=== PATIENT | male | born 1995 | race Two or more races ===

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

== ENCOUNTER 2017-03-18 03:56 | Emergency (ER) | payer OTHER ==
[2017-03-18 04:03] VITALS: BP 106/65; PULSE 68; TEMP 97.9
[2017-03-18] MEDS ORDERED: FAMOTIDINE IV 20 MG in DEXTROSE 5%-WATER - 100 ML IVPB ONE (04:30)
[2017-03-18] MEDS ORDERED: SODIUM CHLORIDE 1,000 ML IV STA (04:30)
[2017-03-18] MEDS ORDERED: PANTOPRAZOLE SODIUM 40 MG VIAL IVPUSH ONE (04:30)
[2017-03-18] MEDS ORDERED: ONDANSETRON 4 MG/2 ML VIAL IVPUSH ONE (04:30)
[2017-03-18] MEDS ORDERED: ONDANSETRON 4 MG/2 ML VIAL ONE (04:35)
[2017-03-18] MEDS ORDERED: PANTOPRAZOLE SODIUM 40 MG VIAL ONE (04:35)
[2017-03-18] MEDS ORDERED: FAMOTIDINE 20 MG/50 ML IVPB 20 MG/50 ML MG IVPB ONE (04:35)
--- NOTE | 2017-03-18 04:37 | PDOC ---
History of Present Illness - General Chief Complaint: Nausea/Vomiting Stated Complaint: ACID REFLUX Time Seen by Provider: 03/18/17 04:05 History Source: Patient Exam Limitations: No Limitations - History of Present Illness Travel History: No Initial Comments: 03/18/17 04:31 22yo Male patient w/ PmHx: GERD presents to ED via EMS c/o n/v with epigastric abdominal pain. Patient states symptoms began this morning after eating "Pork." He states he has not been feeling well, and went to pick his girlfriend up from work, when he began vomiting and experiencing epigastric abdominal pain. He denies any other complaints at this time. Timing/Duration: reports: resolved prior to arrival. denies: constant, getting worse, changing over time, intermittent, gone now, other Quality: reports: burning. denies: mild, moderate, severe, aching, cramping, dullness, fullness, sharpness, stabbing, throbbing, other Abdominal Pain Onset Location: reports: epigastric. denies: RUQ, LUQ, RLQ, LLQ , periumbilical, suprapubic, generalized abdomen, flank, unknown, other Pain Radiation: reports: no radiation. denies: RUQ, LUQ, RLQ, LLQ, epigastric, periumbilical, flank, groin, scapula, shoulder, chest, back, other Activities at Onset: reports: no specific activity. denies: none, exertion, emotional upset, rest, sleep, eating, working, sexual intercourse, other Treatment Prior to Arrive: worse with: analgesics, antacids, cold pack, heat, laxative, enema, other Past History - Travel Traveled outside of the country in the last 30 days: No Close contact w/someone who was outside of country & ill: No - Past Medical History Allergies/Adverse Reactions: Allergies Allergy/AdvReac Type Severity Reaction Status Date / Time No Known Allergies Allergy Verified 03/18/17 04:00 Home Medications: Ambulatory Orders Famotidine [Pepcid] 40 mg PO DAILY 7 Days #7 tablet 03/18/17 Ondansetron [Zofran Odt -] 4 mg SL Q6H PRN #20 od.tablet 03/18/17 Pantoprazole Sodium [Protonix -] 40 mg PO DAILY #7 tablet.ec 03/18/17 - Immunization History Immunization Up to Date: Yes - Suicide/Smoking/Psychosocial Hx Smoking History: Never smoked Have you smoked in the past 12 months: No Information on smoking cessation initiated: No Hx Alcohol Use: No Drug/Substance Use Hx: No Substance Use Type: None Abd/GI Specific PMHX - Complaint Specific PMHX Colitis: No Diverticulitis: No Gall Bladder Disease: No GERD: No Hepatitis: No Irritable Bowel Synd (IBS): No Pancreatitis: No GI Ulcer Disease: No Review of Systems - Review of Systems Able to Perform ROS?: Yes Is the patient limited Mongolian proficient: No ABD/GI: Yes: Nausea, Vomiting, Abdominal cramping (Epigastric) All Other Systems: Reviewed and Negative *Physical Exam - Vital Signs Last Vital Signs Temp Pulse Resp BP Pulse Ox 97.9 F 68 14 106/65 99 03/18/17 04:01 03/18/17 04:01 03/18/17 04:01 03/18/17 04:01 03/18/17 04:01 - Physical Exam General Appearance: Yes: Nourished, Appropriately Dressed. No: Apparent Distress, Mild Distress, Moderate Distress, Severe Distress Neck: positive: Trachea midline, Normal Thyroid, Supple. negative: Lymphadenopathy (R), Lymphadenopathy (L) Respiratory/Chest: positive: Lungs Clear, Normal Breath Sounds. negative: Chest Tender, Respiratory Distress, Accessory Muscle Use, Labored Respiration, Rapid RR, Decreased Breath Sounds, Paradoxal Breathing, Crackles, Rhonchi, Stridor, Wheezing, Hyperresonant Cardiovascular: positive: Regular Rhythm, Regular Rate. negative: Tachycardia Gastrointestinal/Abdominal: positive: Flat, Soft, Increased Bowel Sounds. negative: Normal Bowel Sounds, Tender, Pulsatile Mass, Decreased BS, Protuberent , Distended, Guarding, Rebound, Tenderness Musculoskeletal: positive: Normal Inspection. negative: CVA Tenderness, Decreased Range of Motion, Vertebral Tenderness Extremity: positive: Normal Capillary Refill, Normal Inspection, Normal Range of Motion. negative: Pedal Edema, Swelling, Calf Tenderness, Erythema, Inflammation Integumentary: positive: Normal Color, Dry, Warm. negative: Cold, Clammy, Swelling, Ecchymosis, Bruising Neurologic: positive: cloth washer back tender II-XII NML intact, Fully Oriented, Alert, Normal Mood/ Affect, Normal Response, Motor Strength 5/5 ED Treatment Course - LABORATORY CBC & Chemistry Diagram: 03/18/17 04:45 03/18/17 04:45 *DC/Admit/Observation/Transfer Diagnosis at time of Disposition: Gastroenteritis - Discharge Dispostion Disposition: HOME Condition at time of disposition: Improved Admit: No - Prescriptions Prescriptions: Famotidine [Pepcid] 40 mg PO DAILY 7 Days #7 tablet Ondansetron [Zofran Odt -] 4 mg SL Q6H PRN #20 od.tablet PRN Reason: Nausea/Vomiting Pantoprazole Sodium [Protonix -] 40 mg PO DAILY #7 tablet.ec - Referrals - Patient Instructions Printed Discharge Instructions: DI for Vomiting -- Adult Additional Instructions: Follow up with your primary care provider this week for further evaluation. Take medications as prescribed. Drink plenty fluids. Rest. Print Language: WELSH - Post Discharge Activity Forms/Work/School Notes: Back to Work
[2017-03-18 04:49] LABS: BASOPHIL 0.5 % (0-2.0); EOSINOPHIL 0.8 % (0-4.5); MCHC 34.3 g/dl (32.0-35.9); MEAN CELL VOLUME 84.7 fl (80-96); MEAN PLT VOLUME 8.1 fl (7.5-11.1); NEUTROPHILS 83.5 % (42.8-82.8); PLATELET COUNT 207 K/MM3 (134-434); RDW 13.6 % (11.9-15.9); WHITE BLOOD COUNT 11.9 K/mm3 (4.0-10.0)
[2017-03-18 05:19] LABS: ALBUMIN 4.3 g/dl (3.4-5.0); ANION GAP 8 (8-16); CALCIUM 9.1 mg/dL (8.5-10.1); CO2 27 mmol/L (21-32); CREATININE 0.9 mg/dL (0.7-1.3); GLUCOSE,RANDOM 94 mg/dL (74-106); SGOT/AST 17 U/L (15-37); SGPT/ALT 19 U/L (12-78)
[2017-03-18 05:21] LABS: ALK PHOS 60 U/L (45-117); BILIRUBIN,TOTAL 0.7 mg/dL (0.2-1.0); TOT PROT 6.9 g/dl (6.4-8.2)
[2017-03-18 06:08] LABS: URINE APPEARANCE CLEAR; URINE BILIRUBIN NEGATIVE (NEGATIVE); URINE BLOOD NEGATIVE (NEGATIVE); URINE COLOR LT. YELLOW; URINE GLUCOSE (UA) NEGATIVE (NEGATIVE); URINE KETONE TRACE (NEGATIVE); URINE NITRITE NEGATIVE (NEGATIVE); URINE PROTEIN NEGATIVE (NEGATIVE); URINE UROBILINOGEN 0.2 mg/dL (0.2-1.0)
[2017-03-18 09:16] LABS: URINE LEUK ESTERASE Negative (NEGATIVE)
== END 2017-03-18 06:43 | disposition home or self-care (01) ==
LOC: JER 03:56
PROC: 3E023NZ Introduction of Analgesics, Hypnotics, Sedatives into Muscle, Percutaneous Approach (ICD-10-PCS; principal; 2017-03-18)
DX: M54.5 Low back pain (principal); X50.0XXA Overexertion from strenuous movement or load, initial encounter; Y93.89 Activity, other specified; Y92.59 Other trade areas as the place of occurrence of the external cause; Y99.0 Civilian activity done for income or pay
CPT/HCPCS: 36415; 80053; 81003; 85025; 96372; 99282-25

== ENCOUNTER 2018-03-12 13:14 | Emergency (ER) | payer OTHER ==
[2018-03-12 13:23] VITALS: BP 108/73; PULSE 88; TEMP 98.2
--- NOTE | 2018-03-12 13:49 | PDOC ---
History of Present Illness - General Chief Complaint: Allergic Reaction Stated Complaint: Allergic Reaction Time Seen by Provider: 03/12/18 13:35 History Source: Patient Past History - Past Medical History Allergies/Adverse Reactions: Allergies Allergy/AdvReac Type Severity Reaction Status Date / Time No Known Allergies Allergy Verified 03/12/18 13:20 Home Medications: Ambulatory Orders Acetaminophen [Tylenol] 650 mg PO ONCE 03/12/18 Niacinamide [Niacin] 500 mg PO ONCE 03/12/18 COPD: No GI Disorders: Yes (chr gastritis) - Immunization History Immunization Up to Date: Yes - Suicide/Smoking/Psychosocial Hx Smoking History: Smoker current status UNK Have you smoked in the past 12 months: No Hx Alcohol Use: No Drug/Substance Use Hx: No Substance Use Type: None Review of Systems - Review of Systems HEENTM: No: Throat Pain, Throat Swelling Respiratory: No: Shortness of Breath Integumentary: Yes: Pruritus. No: Rash *Physical Exam - Vital Signs Last Vital Signs Temp Pulse Resp BP Pulse Ox 98.2 F 88 18 108/73 99 03/12/18 13:22 03/12/18 13:22 03/12/18 13:22 03/12/18 13:22 03/12/18 13:22 - Physical Exam General Appearance: Yes: Appropriately Dressed. No: Apparent Distress HEENT: positive: Normal ENT Inspection, Normal Voice, Pharynx Normal Neck: positive: Supple Respiratory/Chest: positive: Lungs Clear, Normal Breath Sounds. negative: Respiratory Distress, Stridor, Wheezing Cardiovascular: positive: Regular Rate, S1, S2 Integumentary: negative: Rash Neurologic: positive: Fully Oriented, Alert, Normal Mood/Affect Medical Decision Making - Medical Decision Making 03/12/18 13:51 22-year-old male here with pruritus and burning sensation to skin shortly after taking niacin this a.m. States symptoms have since improved. No voice changes, resp symptoms or rash. Has never taken niacin before. States he is on probation and trying to pass a drug test after smoking marijuana recently and that a friend gave him 1 dose of niacin telling him that meds will help detox system. See exam Adverse rxn to meds No resp sxs Well quentin and stable w/ unremarkable exam No intervention needed in ED -dc w/ instruction to refrain for meds and to return as needed 03/12/18 13:55 *DC/Admit/Observation/Transfer Diagnosis at time of Disposition: Medication side effect - Discharge Dispostion Disposition: HOME Condition at time of disposition: Good - Referrals - Patient Instructions Printed Discharge Instructions: DI for Adverse Drug Reaction -- Allergic Additional Instructions: Niacin is a medication used to treat cholesterol It can cause adverse reaction such as itching, burning sensation of skin, rash, etc As your exam was normal and you are stable, there is no intervention needed in ED Refrain from taking medication in the future If symptoms recur, return to ED - Post Discharge Activity
== END 2018-03-12 14:25 | disposition home or self-care (01) ==
LOC: JERFT 13:14
DX: T46.7X5A Adverse effect of peripheral vasodilators, initial encounter (principal); Y92.89 Other specified places as the place of occurrence of the external cause
CPT/HCPCS: 99281-25

== ENCOUNTER 2018-08-05 09:23 | Emergency (ER) | payer OTHER ==
[2018-08-05] MEDS ORDERED: FAMOTIDINE 20 MG/50 ML IVPB 20 MG/50 ML MG IVPB ONE ×2 (10:11→10:55)
[2018-08-05] MEDS ORDERED: ONDANSETRON 4 MG/2 ML VIAL IVPUSH ONE (10:11)
[2018-08-05] MEDS ORDERED: morphine CARPU-JECT 2 MG/1 ML DISP.SYRIN IVPUSH ONE (10:17)
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
[2018-08-05] MEDS ORDERED: ACETAMINOPHEN 325 MG TABLET (FP) PO ONE (10:47)
[2018-08-05 10:48] LABS: BASO % 0.6 % (0-2.0); EOS % 0.4 % (0-4.5); HEMOGLOBIN 14.1 GM/dL (11.7-16.9); LYMPH % 15.1 % (8-40); MCH 29.6 pg (25.7-33.7); MCHC 34.4 g/dl (32.0-35.9); MEAN CELL VOLUME 86.2 fl (80-96); MEAN PLT VOLUME 7.8 fl (7.5-11.1); MONO % 7.2 % (3.8-10.2); NEUT % 76.7 % (42.8-82.8); PLATELET COUNT 219 K/MM3 (134-434); RBC 4.76 M/mm3 (4.00-5.60); RDW 13.6 % (11.9-15.9); WHITE BLOOD COUNT 7.4 K/mm3 (4.0-10.0)
[2018-08-05] MEDS ORDERED: ACETAMINOPHEN 325 MG TABLET (FP) ONE (10:54)
[2018-08-05] MEDS ORDERED: ONDANSETRON 4 MG/2 ML VIAL ONE (10:54)
[2018-08-05 10:56] LABS: URINE APPEARANCE CLEAR; URINE BILIRUBIN NEGATIVE (NEGATIVE); URINE COLOR YELLOW; URINE GLUCOSE (UA) NEGATIVE (NEGATIVE); URINE KETONE NEGATIVE (NEGATIVE); URINE LEUK ESTERASE NEGATIVE (NEGATIVE); URINE NITRITE NEGATIVE (NEGATIVE); URINE PROTEIN NEGATIVE (NEGATIVE); URINE UROBILINOGEN 0.2 mg/dL (0.2-1.0)
[2018-08-05 11:16] LABS: ALK PHOS 60 U/L (45-117); ANION GAP 3 MMOL/L (8-16); BILIRUBIN,TOTAL 0.9 mg/dL (0.2-1); BLOOD UREA NITROGEN 10 mg/dL (7-18); CHLORIDE 107 mmol/L (98-107); CO2 28 mmol/L (21-32); CREATININE 0.7 mg/dL (0.55-1.3); GLUCOSE,RANDOM 93 mg/dL (74-106); LIPASE 237 U/L (73-393); SGOT/AST 22 U/L (15-37); SGPT/ALT 31 U/L (13-61); SODIUM 138 mmol/L (136-145)
[2018-08-05 11:24] LABS: COCAINE, UR NEGATIVE ng/ml (CUTOFF=300); METHADONE, UR NEGATIVE ng/ml (CUTOFF=300); OPIATES, URI NEGATIVE ng/ml (CUTOFF=300); PHENCYCLIDINE,URINE NEGATIVE ng/ml (CUTOFF=25); URINE AMPHETAMINES NEGATIVE ng/ml (CUTOFF=500); URINE BARBITURATES NEGATIVE ng/ml (CUTOFF=200); URINE BENZODIAZEPINES NEGATIVE ng/ml (CUTOFF=200)
[2018-08-05] MEDS ORDERED: IBUPROFEN 600 MG TABLET (FP) PO ONE (12:47)
[2018-08-05] MEDS ORDERED: KETOROLAC TROMETHAMINE 30 MG/1 ML VIAL IVPUSH ONE (12:48)
--- NOTE | 2018-08-05 12:51 | PDOC ---
*Physical Exam - Vital Signs Last Vital Signs Temp Pulse Resp BP Pulse Ox 98.1 F 82 18 113/59 L 100 08/05/18 09:26 08/05/18 09:26 08/05/18 09:26 08/05/18 09:26 08/05/18 09:26 - Physical Exam General Appearance: Yes: Nourished, Appropriately Dressed. No: Apparent Distress HEENT: positive: RALPH, Normal ENT Inspection, Normal Voice Neck: positive: Supple Respiratory/Chest: positive: Lungs Clear, Normal Breath Sounds Cardiovascular: positive: Regular Rhythm, Regular Rate, S1, S2 Vascular Pulses: Dorsalis-Pedis (R): 2+, Doralis-Pedis (L): 2+ Gastrointestinal/Abdominal: positive: Tender (llq), Soft Rectal Exam: positive: deferred Lymphatic: negative: Adenopathy Musculoskeletal: positive: Normal Inspection. negative: CVA Tenderness Extremity: positive: Normal Capillary Refill, Normal Inspection, Normal Range of Motion Integumentary: positive: Normal Color, Dry, Warm Neurologic: positive: laborer operator II-XII NML intact, Fully Oriented, Alert, Normal Mood/ Affect, Normal Response ED Treatment Course - LABORATORY CBC & Chemistry Diagram: 08/05/18 10:36 08/05/18 10:10 - ADDITIONAL ORDERS Additional order review: Laboratory Results 08/05/18 08/05/18 08/05/18 10:55 10:42 10:10 Sodium 138 Potassium 4.0 Chloride 107 Carbon Dioxide 28 Anion Gap 3 L BUN 10 Creatinine 0.7 Creat Clearance w eGFR 142.36 Random Glucose 93 Calcium 9.0 Total Bilirubin 0.9 AST 22 ALT 31 Alkaline Phosphatase 60 Total Protein 7.0 Albumin 4.0 Lipase 237 Urine Color Yellow Urine Appearance Clear Urine pH 7.0 Ur Specific [place] 1.007 L Urine Protein Negative Urine Glucose (UA) Negative Urine Ketones Negative Urine Blood Negative Urine Nitrite Negative Urine Bilirubin Negative Urine Urobilinogen 0.2 Ur Leukocyte Esterase Negative Opiates Screen Negative Methadone Screen Negative Barbiturate Screen Negative Phencyclidine Screen Negative Ur Amphetamines Screen Negative MDMA (Ecstasy) Screen Negative Benzodiazepines Screen Negative Cocaine Screen Negative U Marijuana (THC) Screen Positive A* 08/05/18 10:36 RBC 4.76 MCV 86.2 MCHC 34.4 RDW 13.6 MPV 7.8 Neutrophils % 76.7 Lymphocytes % 15.1 D Monocytes % 7.2 Eosinophils % 0.4 Basophils % 0.6 - Medications Given in the ED: ED Medications Discontinued Medications Generic Name Dose Route Start Last Admin Trade Name Елена PRN Reason Stop Dose Admin Acetaminophen 650 mg 08/05/18 10:47 08/05/18 11:04 Tylenol - PO 08/05/18 10:48 650 mg ONCE ONE Administration Famotidine/Sodium Chloride 20 mg in 50 mls @ 100 mls/hr 08/05/18 10:11 11:04 Pepcid 20 Mg Premixed Ivpb - IVPB 08/05/18 10:40 100 mls/hr ONCE ONE Administration Ondansetron HCl 4 mg 08/05/18 10:11 08/05/18 11:04 Zofran Injection IVPUSH 08/05/18 10:12 4 mg ONCE ONE Administration Medical Decision Making - Medical Decision Making Patient signed out to me pending CTAP results and likely discharge. CTAP negative Labs unremarkable Will do an abdominal US on patient Abdominal US negative Will give IV toradol for pain Patient feels better after analgesia Will DC with PCP follow up. *DC/Admit/Observation/Transfer Diagnosis at time of Disposition: Abdominal pain - Discharge Dispostion Condition at time of disposition: Stable Decision to Admit order: No - Referrals Referrals: Diana Wan MD [Primary Care Provider] - - Patient Instructions Printed Discharge Instructions: DI for Abdominal Pain-Adult Additional Instructions: Please make sure to scheduel a follow up appointment with your primary care doctor in the next 24 to 48 hours. Come back to the ER immediately if your pain worsens, you start vomiting, or have any other new or worsening concerns. Thank you for coming to the [facility] ER. We hope you feel better soon! Print Language: FRISIAN - Post Discharge Activity Forms/Work/School Notes: Back to Work
[2018-08-05 18:18] VITALS: BP 114/50; PULSE 63; TEMP 98.5
== END 2018-08-05 14:21 | disposition home or self-care (01) ==
LOC: JER 09:23
PROC: 3E033GC Introduction of Other Therapeutic Substance into Peripheral Vein, Percutaneous Approach (ICD-10-PCS; principal; 2018-08-05)
PROC: 3E033GC Introduction of Other Therapeutic Substance into Peripheral Vein, Percutaneous Approach (ICD-10-PCS; 2018-08-05)
DX: R10.9 Unspecified abdominal pain (principal)
CPT/HCPCS: 36415; 70450-TC; 74177-TC; 80053; 80307; 81003; 83690; 85025; 99281-25

== ENCOUNTER 2018-09-15 12:00 | Emergency (ER) | payer OTHER | END 2018-09-15 12:36 | disposition home or self-care (01) | LOC: JERFT 12:00 ==

== ENCOUNTER 2018-10-28 21:12 | Emergency (ER) | payer OTHER ==
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
[2018-10-28 21:17] VITALS: BP 132/77; PULSE 61; TEMP 98
[2018-10-28] MEDS ORDERED: IBUPROFEN 600 MG TABLET (FP) PO ONE ×2 (21:17→21:21)
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
== END 2018-10-28 22:46 | disposition home or self-care (01) ==
LOC: JERFT 21:12
PROC: 2W3LX1Z Immobilization of Right Lower Extremity using Splint (ICD-10-PCS; principal; 2018-10-28)
DX: S89.81XA Other specified injuries of right lower leg, initial encounter (principal); V49.59XA Passenger injured in collision with other motor vehicles in traffic accident, initial encounter; Y92.414 Local residential or business street as the place of occurrence of the external cause; Y93.89 Activity, other specified; Y99.8 Other external cause status
CPT/HCPCS: 73562-TC-RT-FY; 99281-25

== ENCOUNTER 2019-05-04 20:57 | Emergency (ER) | payer OTHER ==
[2019-05-04] MEDS ORDERED: IBUPROFEN 600 MG TABLET (FP) PO ONE ×2 (22:00→23:43)
--- NOTE | 2019-05-04 22:00 | PDOC ---
Rapid Medical Evaluation Time Seen by Provider: 05/04/19 21:56 Medical Evaluation: Allergies Allergy/AdvReac Type Severity Reaction Status Date / Time No Known Allergies Allergy Verified 10/28/18 21:17 05/04/19 21:56 Pt presents to the ER for fever, sore throat, coughs, and body aches. Also admits to associated lightheadedness Exam: febrile lungs ctab Orders: flu/strep, motrin Pt to proceed to the ER for evaluation Discharge Disposition - Diagnosis Flu-like symptoms - Referrals - Patient Instructions - Post Discharge Activity
[2019-05-04 22:06] VITALS: BMI 20.7
--- NOTE | 2019-05-04 23:35 | PDOC ---
History of Present Illness - General Chief Complaint: Cold Symptoms Stated Complaint: COUGH/SORE THROAT Time Seen by Provider: 05/04/19 21:56 - History of Present Illness Initial Comments: Marcelo Maddox is an otherwise healthy 24yo man who presents to the ED with 3 days of cough, congestion, sore throat, body aches, shivering, sweating, and now 3x episodes of vomting today. 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 He has been taking Nyquil for his symptoms without significant relief. He did not get a flu shot this year. Past History - Past Medical History Allergies/Adverse Reactions: Allergies Allergy/AdvReac Type Severity Reaction Status Date / Time No Known Allergies Allergy Verified 10/28/18 21:17 Home Medications: Ambulatory Orders Acetaminophen [Pain Relief] 650 mg PO Q6H PRN #30 tablet.er 05/04/19 COPD: No GI Disorders: Yes (chr gastritis) - Immunization History Immunization Up to Date: Yes - Psycho Social/Smoking Cessation Hx Smoking History: Never smoked Have you smoked in the past 12 months: Yes Hx Alcohol Use: No Drug/Substance Use Hx: No Substance Use Type: None, Marijuana (current everyday marijuana smoker since age 16) Review of Systems - Review of Systems Comments:: General: + fevers, + chills, no weight or appetite change, + malaise HEENT: No changes in vision, no changes in hearing, + congestion, + sore throat CV: No chest pain, no palpitations, no LE edema Pulm: No SOB, + cough, no wheezing GI: + nausea/vomiting, no change in bowel habits, no melena : No frequency, no urgency, no dysuria Musc: No back pain, no joint swelling, no recent injury. +body aches Skin: No rash, no lesions, no erythema Endo: No excessive thirst, no heat/cold intolerance Heme: No unusual bruising or bleeding, no swollen glands Neuro: No syncope, no numbness/tingling, no focal weakness Vasc: No claudication Psych: No recent change in mood, no SI or HI *Physical Exam - Vital Signs Last Vital Signs Temp Pulse Resp BP Pulse Ox 101 F H 104 H 18 125/73 97 05/04/19 21:59 05/04/19 21:59 05/04/19 21:59 05/04/19 21:59 05/04/19 21:59 - Physical Exam General: Comfortable, no acute distress HEENT: PERRL, EOMI, MMM, voice hoarse, normal neck ROM, mild pharyngeal erythema w/o exudate, Cards: RRR, no murmur appreciated Pulm: Comfortable on room air, clear to auscultation bilaterally. +productive cough observed Abd: Soft, nontender, nondistended Ext: Atraumatic. No LE edema. ROM intact. WWP Skin: Normal color, no rashes or lesions Neuro: A&Ox3, CN grossly intact, normal speech, motor/sensory grossly intact and symmetric Psych: Mood appropriate to situation Medical Decision Making - Medical Decision Making 05/04/19 23:30 Marcelo Maddox is an otherwise healthy 24yo man who presents to the ED with 3 days of cough, congestion, sore throat, body aches, shivering, sweating, and now 3x episodes of vomting today. - Flu B positive. Symptoms present for 3 days and otherwise healthy, will not give tamiflu - Discussed home care at length - per pt request, will send prescription for acetaminophen - Will give info for [facility] to establish care with a PMD Discussed with Dr Anoop Morgan PGY2 Discharge - Discharge Information Problems reviewed: Yes Clinical Impression/Diagnosis: Influenza B Condition: Stable Disposition: HOME - Admission No - Additional Discharge Information Prescriptions: Acetaminophen [Pain Relief] 650 mg PO Q6H PRN #30 tablet.er PRN Reason: pain or fever - Follow up/Referral - Patient Discharge Instructions Patient Printed Discharge Instructions: DI for Influenza -- Adult Additional Instructions: Discharge Instructions: You were seen in the emergency department for congetsion, cough, body aches, and fever. You had an influenza (the flu) test sent that was positive. The flu is a viral infection and will get better over a week or so without any special treatment. Home Care and Follow Up: - You will continue to have fever and your other symptoms - Make sure you are drinking plenty of fluids while you are sick. Increase your normal fluid intake. It is OK if you do not feel like eating as long as you are staying well hydrated - You may use medications such as acetaminophen (Tylenol) 650-1000mg or ibuprofen (Advil, Motrin) 400-600mg every 6 hours as needed for pain or fever over 101F. Acetaminophen has been prescribed for you. - Consider placing a humidifier in your room overnight to help relieve congestion and reduce drying of your nose and mouth. - Use throat lozenges (cough drops) for sore throat or cough - If you use additional cold medications, make sure they do not contain medicines you are already taking such as acetaminophen or ibuprofen - You should feel better within a week, though cough can sometimes last longer. If you are not feeling better in a week, follow up with your primary doctor. If you need to see a new doctor, you have been referred to the [facility]. - Seek immediate care if you have worsening symptoms, you are unable to stay hydrated, you develop high fevers over 104F that do not come down with medication, or you have any other medical emergency. - Post Discharge Activity Work/Back to School Note: Back to Work
--- NOTE | 2019-05-04 23:39 | PDOC ---
Attending Attestation - Resident Resident Name: EddieSadia - ED Attending Attestation I have performed the following: I have examined & evaluated the patient, The case was reviewed & discussed with the resident, I agree w/resident's findings & plan - HPI HPI: 05/04/19 23:38 see resident hpi - Physicial Exam PE: 05/04/19 23:39 agree with resident exam - Medical Decision Making 05/04/19 23:39 24-year-old male with cough fever and congestion as well as body aches Influenza positive in the emergency department Patient nontoxic-appearing Will DC with outpatient follow-up
[2019-05-05 00:33] VITALS: BP 113/61; PULSE 77; TEMP 98
== END 2019-05-05 00:30 | disposition home or self-care (01) ==
LOC: JER 20:57
DX: J10.1 Influenza due to other identified influenza virus with other respiratory manifestations (principal)
CPT/HCPCS: 87070; 87804; 87880; 99284-25

== ENCOUNTER 2019-10-21 21:04 | Emergency (ER) | payer OTHER ==
[2019-10-21 21:09] VITALS: BP 114/66; PULSE 65; TEMP 98.4; BMI 20.7
[2019-10-21] MEDS ORDERED: IBUPROFEN 400 MG TABLET (FP) PO ONE ×2 (21:22→21:39)
--- NOTE | 2019-10-21 21:28 | PDOC ---
History of Present Illness - General Chief Complaint: Injury Stated Complaint: FALL Time Seen by Provider: 10/21/19 21:19 History Source: Patient - History of Present Illness Occurred: reports: this afternoon Pain Location: reports: upper extremity Method of Injury: Yes: fall Past History - Medical History Allergies/Adverse Reactions: Allergies Allergy/AdvReac Type Severity Reaction Status Date / Time No Known Allergies Allergy Verified 10/21/19 21:09 Home Medications: Ambulatory Orders Acetaminophen [Pain Relief] 650 mg PO Q6H PRN #30 tablet.er 05/04/19 Ibuprofen [Motrin -] 600 mg PO QID #28 tablet 10/21/19 COPD: No GI Disorders: Yes (chr gastritis) - Immunization History Immunization Up to Date: Yes - Psycho-Social/Smoking History Smoking History: Current every day smoker Have you smoked in the past 12 months: Yes Number of Cigarettes Smoked Daily: 1 Information on smoking cessation initiated: No - Substance Abuse Hx (Audit-C & DAST Scrn) How often the patient has a drink containing alcohol: Never Score: In Men: 4 or > Positive; In Women: 3 or > Positive: 0 Screen Result (Pos requires Nsg. Audit-10AR): Negative Review of Systems - Review of Systems Musculoskeletal: Yes: Joint Pain. No: Joint Swelling Neurological: No: Numbness, Tingling *Physical Exam - Vital Signs Last Vital Signs Temp Pulse Resp BP Pulse Ox 98.4 F 65 18 114/66 100 10/21/19 21:06 10/21/19 21:06 10/21/19 21:06 10/21/19 21:06 10/21/19 21:06 - Physical Exam General Appearance: Yes: Appropriately Dressed, Mild Distress HEENT: positive: Normal Voice Neck: positive: Supple Respiratory/Chest: negative: Respiratory Distress Extremity: positive: Tender (difusely to L wrist, no ttp to snuffbox, LROM to wrist 2/2 pain, NVI). negative: Swelling Integumentary: positive: Dry, Warm Neurologic: positive: Fully Oriented, Alert, Normal Mood/Affect ED Treatment Course - RADIOLOGY Radiology Studies Ordered: Category Date Time Status WRIST W/HAND-LEFT* [RAD] Stat Radiology 10/21/19 21:22 Ordered Medical Decision Making - Medical Decision Making 10/21/19 21:23 24 yo M, w/ L wrist pain s/p fall today. Tripped down 4-5 steps outdorrs and use L hand to break fall. No neuro sxs See exam R/o wrist fx Diffuse ttp to l wrist without swelling or snuffbox ttp XR pending 10/21/19 21:40 Xr neg for fx. Avinash placed and motrin given. Dc w/ RICE. Ortho f/u as needed as d/w pt Discharge - Discharge Information Problems reviewed: Yes Clinical Impression/Diagnosis: Left wrist sprain Qualifiers: Encounter type: initial encounter Qualified Code(s): S63.502A - Unspecified sprain of left wrist, initial encounter Condition: Good Disposition: HOME - Additional Discharge Information Prescriptions: Ibuprofen [Motrin -] 600 mg PO QID #28 tablet - Follow up/Referral Referrals: Efrem Barrett MD [Staff Physician] - - Patient Discharge Instructions Patient Printed Discharge Instructions: DI for Wrist Sprain Additional Instructions: Take motrin and keep avinash wrap in place or purchase brace over the counter Please follow up with orthopedics in 2 weeks as needed - Post Discharge Activity
== END 2019-10-21 23:48 | disposition home or self-care (01) ==
LOC: JERFT 21:04
DX: S63.502A Unspecified sprain of left wrist, initial encounter (principal); W19.XXXA Unspecified fall, initial encounter
CPT/HCPCS: 73110-TC-LT-FY; 73130-TC-LT-FY; 99283-25

== ENCOUNTER 2019-12-19 19:19 | Emergency (ER) | payer OTHER ==
[2019-12-19 19:31] VITALS: TEMP 99
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
[2019-12-19] MEDS ORDERED: SODIUM CHLORIDE 1,000 ML IV STA (21:06)
[2019-12-19] MEDS ORDERED: ONDANSETRON 4 MG/2 ML VIAL IVPB ONE (21:06)
[2019-12-19 21:37] LABS: BASO % 0.9 % (0-2.0); EOS % 1.9 % (0-4.5); HEMATOCRIT 41.4 % (35.4-49); LYMPH % 23.2 % (8-40); MCH 29.7 pg (25.7-33.7); MEAN CELL VOLUME 87.3 fl (80-96); MEAN PLT VOLUME 8.2 fl (7.5-11.1); MONO % 6.7 % (3.8-10.2); NEUT % 67.3 % (42.8-82.8); PLATELET COUNT 233 K/MM3 (134-434); RBC 4.74 M/mm3 (4.00-5.60); RDW 13.6 % (11.9-15.9); WHITE BLOOD COUNT 9.9 K/mm3 (4.0-10.0)
[2019-12-19] MEDS ORDERED: ACETAMINOPHEN 1000 MG/100 ML VIAL (NON FORMULARY) IVPB ONE (21:38)
[2019-12-19] MEDS ORDERED: ACETAMINOPHEN INJECTION 100 ML IVPB ONE (22:02)
[2019-12-19 22:03] LABS: ALBUMIN 4.2 g/dl (3.4-5.0); BILIRUBIN,TOTAL 0.6 mg/dL (0.2-1); BLOOD UREA NITROGEN 9.9 mg/dL (7-18)
[2019-12-19 23:37] LABS: URINE APPEARANCE CLEAR; URINE BILIRUBIN NEGATIVE (NEGATIVE); URINE COLOR YELLOW; URINE GLUCOSE (UA) NEGATIVE (NEGATIVE); URINE KETONE NEGATIVE (NEGATIVE); URINE LEUK ESTERASE NEGATIVE (NEGATIVE); URINE NITRITE NEGATIVE (NEGATIVE); URINE PROTEIN NEGATIVE (NEGATIVE); URINE UROBILINOGEN 0.2 mg/dL (0.2-1.0)
[2019-12-20 01:36] VITALS: BP 122/74; PULSE 83
--- NOTE | 2019-12-20 10:37 | EKG ---
Test Reason : Blood Pressure : / mmHG Vent. Rate : 045 BPM Atrial Rate : 045 BPM P-R Int : 300 ms QRS Dur : 082 ms QT Int : 448 ms P-R-T Axes : 051 074 052 degrees QTc Int : 387 ms SINUS BRADYCARDIA WITH SINUS ARRHYTHMIA WITH 1ST DEGREE A-V BLOCK OTHERWISE NORMAL ECG NO PREVIOUS ECGS AVAILABLE Confirmed by Brayden Limon MD ([id number]) on 12/20/2019 10:36:39 AM Referred By: Confirmed By:Brayden Limon MD
== END 2019-12-20 01:37 | disposition home or self-care (01) ==
LOC: JER 19:19
PROC: 3E0333Z Introduction of Anti-inflammatory into Peripheral Vein, Percutaneous Approach (ICD-10-PCS; principal; 2019-12-19)
PROC: 3E033GC Introduction of Other Therapeutic Substance into Peripheral Vein, Percutaneous Approach (ICD-10-PCS; 2019-12-19)
PROC: 3E0337Z Introduction of Electrolytic and Water Balance Substance into Peripheral Vein, Percutaneous Approach (ICD-10-PCS; 2019-12-19)
DX: R10.31 Right lower quadrant pain (principal)
CPT/HCPCS: 36415; 74177-TC; 80053; 81003; 83690; 85025; 93005; 93010; 99285-25; J0131

== ENCOUNTER 2020-02-20 11:42 | Emergency (ER) | payer OTHER ==
[2020-02-20] MEDS ORDERED: SODIUM CHLORIDE 1,000 ML IV STA (11:51)
[2020-02-20] MEDS ORDERED: ONDANSETRON 4 MG/2 ML VIAL IVPUSH ONE (11:51)
[2020-02-20 11:53] VITALS: BMI 19.3
--- NOTE | 2020-02-20 11:56 | PDOC ---
Rapid Medical Evaluation Medical Evaluation: Allergies Allergy/AdvReac Type Severity Reaction Status Date / Time No Known Allergies Allergy Verified 02/20/20 11:49 Vital Signs Temp Pulse Resp BP Pulse Ox 97.6 F 72 18 106/52 L 100 02/20/20 11:49 02/20/20 11:49 02/20/20 11:49 02/20/20 11:49 02/20/20 11:49 02/20/20 11:55 CC: n/v llq pain, + weakness Exam: no cva tenderness, + llq tenderness, vss, actively vomiting bilious fluid Plan: labs, ivf, zofran, urine Discharge Disposition - Diagnosis Nausea & vomiting - Referrals - Patient Instructions - Post Discharge Activity
--- NOTE | 2020-02-20 12:22 | PDOC ---
History of Present Illness - General Chief Complaint: Nausea/Vomiting Stated Complaint: ABD PAIN/VOMITING Time Seen by Provider: 02/20/20 11:56 History Source: Patient Exam Limitations: No Limitations - History of Present Illness Initial Comments: 02/20/20 12:17 Patient is a 24-year-old male who presents to the ED with vomiting since waking up this morning. He states he has a history of this kind of vomiting which she has been told is associated with smoking marijuana. He states he has not smoked yesterday or today. He states he woke up like this. He denies any fevers or chills. He denies any shortness of breath or chest pain. He states his vomitus is yellow. He is having trouble keeping down fluids at this point. He has not taken anything for symptoms. He denies any allergies to medications. He denies any abdominal pain. Past History - Medical History Allergies/Adverse Reactions: Allergies Allergy/AdvReac Type Severity Reaction Status Date / Time No Known Allergies Allergy Verified 02/20/20 11:49 Home Medications: Ambulatory Orders NK [No Known Home Medication] 02/20/20 COPD: No GI Disorders: Yes (chr gastritis) - Immunization History Immunization Up to Date: Yes - Psycho-Social/Smoking History Smoking History: Never smoked Have you smoked in the past 12 months: No Number of Cigarettes Smoked Daily: 0 Information on smoking cessation initiated: Yes - Substance Abuse Hx (Audit-C & DAST Scrn) How often the patient has a drink containing alcohol: Never Score: In Men: 4 or > Positive; In Women: 3 or > Positive: 0 Screen Result (Pos requires Nsg. Audit-10AR): Negative In the last yr the pt used illegal drug/Rx for NonMed reason: No Score: Yes response is considered Positive: 0 Screen Result (Positive result requires Nsg. DAST-10): Negative Review of Systems - Review of Systems Comments:: 02/20/20 12:18 - Review of Systems Able to Perform ROS?: Yes Constitutional: No: Fever, Chills, Loss of Appetite, Night Sweats, Weakness HEENTM: No: Eye Pain, Vision changes, Ear Pain, Throat Pain, Throat Swelling, Mouth Pain, Difficulty Swallowing Respiratory: No: Cough, Shortness of Breath, Wheezing, Sputum Production Cardiac (ROS): No: Chest Pain, Chest Tightness, Palpitations, Irregular Heart Beat, Edema ABD/GI: No: Abdominal Pain, Diarrhea, positive: Nausea, Vomiting, : No Dysuria, No Hematuria, No Frequency, No Urgency Musculoskeletal: No: Muscle Pain, Back Pain, Joint Pain, Muscle Weakness, Neck Pain Integumentary: No: Lesions, Rash Neurological: No: Headache, Numbness, Tingling, Weakness, Speech Difficulties *Physical Exam - Vital Signs Last Vital Signs Temp Pulse Resp BP Pulse Ox 97.6 F 72 18 106/52 L 100 02/20/20 11:49 02/20/20 11:49 02/20/20 11:49 02/20/20 11:49 02/20/20 11:49 - Physical Exam 02/20/20 12:19 - Physical Exam General Appearance: Nourished, Appropriately Dressed, No Distress HEENT: EOMI, Normal Voice, Hearing Grossly Normal Neck: Supple, No Lymphadenopathy (R), No Lymphadenopathy (L), No Rigidity, No Decreased range of motion Respiratory/Chest: Lungs Clear, Normal Breath Sounds. No Respiratory Distress, No Accessory Muscle Use Cardiovascular: Regular Rhythm, Regular Rate, S1, S2 Gastrointestinal/Abdominal: Normal Bowel Sounds, Soft. Non-tender, No Guarding, No Rebound, No Rigidity; patient actively vomiting during exam. Vomitus is bili ous in color without blood appreciated. No reproducible abdominal tenderness to palpation. Nontympanic abdomen. Musculoskeletal: Normal Inspection. No Decreased Range of Motion Extremity: Normal Capillary Refill, Normal Inspection Integumentary: Normal Color, Dry. No Rash Neurologic: patient support associate II-XII NML intact, Fully Oriented, Alert, Normal Mood/Affect, Normal Response ED Treatment Course - LABORATORY CBC & Chemistry Diagram: 02/20/20 14:30 02/20/20 12:20 Medical Decision Making - Medical Decision Making 02/20/20 12:21 Assessment: Patient is a 24-year-old male with nausea and vomiting since waking this morning. 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 Plan: -Saline lock and labs ordered -1 L of NS ordered -4 mg of Zofran ordered -Will reassess 02/20/20 12:46 Patient was sleeping comfortably for roughly 20 minutes after getting Zofran and woke up vomiting again. Will try Reglan and Benadryl. Patient continues to get IV fluids. 02/20/20 14:14 After being reexamined, the patient has left lower quadrant abdominal tenderness to palpation. His WBC count is 21.8. We will give him another liter of fluids and repeat the WBC count. Will order a CT scan with IV contrast for further evaluation. Of note, the patient had normal bowel movement yesterday. 02/20/20 14:26 The patient just began to vomit again. We will check an EKG for QTC and if within normal limits we will give Haldol. 02/20/20 14:39 EKG at 14:28 shows sinus rhythm with a first-degree AV block. [place] interval is 242ms. No ST or T wave abnormalities. QTc is 448. Since the patient is a normal QTc, will give Haldol for persistent vomiting. CT scan pending. 02/20/20 16:[address] scan is negative for acute pathology. There is evidence of periportal edema which was evident on a previous CT scan as well. The WBC count increased to 28K without evidence of infectious process. This is likely secondary to a stress reaction from retching and vomiting all morning. The patient has been given strict return precautions such as increased vomiting, high fevers, shaking chills, severe abdominal pain or any other worsening symptoms. He understands and agrees with this treatment plan. He tolerated a p.o. challenge while in the ED and states he felt so much better. He has also been made aware that continuing to smoke marijuana will continue his cyclical vomiting. He will follow-up with his primary doctor within 1 to 2 days for repeat evaluation. The patient is stable for discharge. Discharge - Discharge Information Problems reviewed: Yes Clinical Impression/Diagnosis: Nausea & vomiting, Cyclical vomiting Condition: Stable Disposition: HOME - Follow up/Referral Referrals: Diana Wan MD [Primary Care Provider] - 2 Days - Patient Discharge Instructions Patient Printed Discharge Instructions: DI for Vomiting -- Adult Additional Instructions: Avoid marijuana use as this will cause your vomiting to return. Get plenty of rest and drink plenty of fluids. Be sure to follow-up with your primary doctor within 1 to 2 days for repeat evaluation. Return to the emergency department for high fevers, shaking chills, profuse vomiting, severe abdominal pain or any other worsening symptoms. - Post Discharge Activity Work/Back to School Note: Back to Work
[2020-02-20 12:43] LABS: BASO % 0.5 % (0-2.0); HEMATOCRIT 44.8 % (35.4-49); HEMOGLOBIN 14.5 GM/dL (11.7-16.9); LYMPH % 5.2 % (8-40); MCH 28.2 pg (25.7-33.7); MCHC 32.4 g/dl (32.0-35.9); MEAN CELL VOLUME 87.2 fl (80-96); MONO % 2.6 % (3.8-10.2); NEUT % 91.7 % (42.8-82.8); PLATELET COUNT 327 K/MM3 (134-434); RBC 5.14 M/mm3 (4.00-5.60); RDW 13.7 % (11.9-15.9); WHITE BLOOD COUNT 21.8 K/mm3 (4.0-10.0)
[2020-02-20] MEDS ORDERED: METOCLOPRAMIDE HCL INJECTION 10 MG/2 ML VIAL IVPB ONE (12:45)
[2020-02-20] MEDS ORDERED: METOCLOPRAMIDE HCL INJECTION 10 MG/2 ML VIAL ONE (12:47)
[2020-02-20 12:53] LABS: POTASSIUM 4.1 mmol/L (3.5-5.1)
[2020-02-20 12:56] LABS: ALBUMIN 4.4 g/dl (3.4-5.0); BLOOD UREA NITROGEN 9.5 mg/dL (7-18); CALCIUM 9.6 mg/dL (8.5-10.1); MAGNESIUM 1.9 mg/dL (1.8-2.4)
[2020-02-20 12:59] LABS: CREATININE 1.1 mg/dL (0.55-1.3)
[2020-02-20 13:01] LABS: BILIRUBIN,TOTAL 0.5 mg/dL (0.2-1); TOT PROT 7.7 g/dl (6.4-8.2)
[2020-02-20] MEDS ORDERED: SODIUM CHLORIDE 0.9% 500 ML INFUS.BAG IV ONE (13:35)
[2020-02-20 13:47] LABS: ANISOCYTOSIS 1+; MACROCYTOSIS 0; PLATELET ESTIMATE NORMAL; TOXIC GRANULATION 2+
[2020-02-20] MEDS ORDERED: HALOPERIDOL LACTATE 5 MG/ML IM ONE (14:36)
[2020-02-20] MEDS ORDERED: HALOPERIDOL LACTATE 5 MG/ML ONE (14:38)
[2020-02-20 15:04] LABS: BASO % 0.2 % (0-2.0); HEMATOCRIT 38.8 % (35.4-49); HEMOGLOBIN 12.7 GM/dL (11.7-16.9); LYMPH % 1.9 % (8-40); MCH 28.3 pg (25.7-33.7); MCHC 32.8 g/dl (32.0-35.9); MEAN CELL VOLUME 86.3 fl (80-96); MEAN PLT VOLUME 7.9 fl (7.5-11.1); MONO % 3.1 % (3.8-10.2); NEUT % 94.8 % (42.8-82.8); PLATELET COUNT 259 K/MM3 (134-434); RBC 4.49 M/mm3 (4.00-5.60); RDW 13.3 % (11.9-15.9)
[2020-02-20 15:51] VITALS: TEMP 98.2
[2020-02-20 16:21] LABS: PLATELET ESTIMATE NORMAL
[2020-02-20 16:26] LABS: COCAINE, UR NEGATIVE ng/ml (CUTOFF=300); METHADONE, UR NEGATIVE ng/ml (CUTOFF=300); OPIATES, URI NEGATIVE ng/ml (CUTOFF=300); PHENCYCLIDINE,URINE NEGATIVE ng/ml (CUTOFF=25); URINE BARBITURATES NEGATIVE ng/ml (CUTOFF=200); URINE BENZODIAZEPINES NEGATIVE ng/ml (CUTOFF=200)
[2020-02-20 16:27] LABS: URINE AMPHETAMINES NEGATIVE ng/ml (CUTOFF=500)
[2020-02-20 16:30] LABS: URINE APPEARANCE CLEAR; URINE BILIRUBIN NEGATIVE (NEGATIVE); URINE COLOR YELLOW; URINE GLUCOSE (UA) NEGATIVE (NEGATIVE); URINE KETONE 15 mg/dl (NEGATIVE)
[2020-02-20 16:31] LABS: URINE LEUK ESTERASE NEGATIVE (NEGATIVE); URINE NITRITE NEGATIVE (NEGATIVE); URINE PROTEIN NEGATIVE (NEGATIVE)
[2020-02-20 16:32] LABS: HYALINE CASTS 1.79 /uL (0-3.1); URINE BACTERIA 3.8 /uL (0-1359); URINE RBC 3.3 /uL (0-23.9); URINE WBC 2.5 /uL (0-25.8)
[2020-02-20 17:30] VITALS: BP 121/78; PULSE 115
--- NOTE | 2020-02-21 10:36 | EKG ---
Test Reason : Blood Pressure : / mmHG Vent. Rate : 082 BPM Atrial Rate : 082 BPM P-R Int : 242 ms QRS Dur : 076 ms QT Int : 384 ms P-R-T Axes : 068 071 057 degrees QTc Int : 448 ms SINUS RHYTHM WITH SINUS ARRHYTHMIA WITH 1ST DEGREE A-V BLOCK OTHERWISE NORMAL ECG WHEN COMPARED WITH ECG OF 19-DEC-2019 22:17, VENT. RATE HAS INCREASED BY 37 BPM QT HAS LENGTHENED Confirmed by MD TALI, ASHLEY ([id number]) on 02/21/2020 10:35:49 AM Referred By: Confirmed By:ASHLEY CESAR MD
== END 2020-02-20 17:31 | disposition home or self-care (01) ==
LOC: JER 11:42
PROC: 3E033GC Introduction of Other Therapeutic Substance into Peripheral Vein, Percutaneous Approach (ICD-10-PCS; principal; 2020-02-20)
PROC: 3E023GC Introduction of Other Therapeutic Substance into Muscle, Percutaneous Approach (ICD-10-PCS; 2020-02-20)
PROC: 3E033GC Introduction of Other Therapeutic Substance into Peripheral Vein, Percutaneous Approach (ICD-10-PCS; 2020-02-20)
PROC: 3E033GC Introduction of Other Therapeutic Substance into Peripheral Vein, Percutaneous Approach (ICD-10-PCS; 2020-02-20)
PROC: 3E0337Z Introduction of Electrolytic and Water Balance Substance into Peripheral Vein, Percutaneous Approach (ICD-10-PCS; 2020-02-20)
DX: R11.2 Nausea with vomiting, unspecified (principal)
CPT/HCPCS: 36415; 74177-TC; 80053; 80307; 81003; 83690; 83735; 85025; 93005; 93010; 99285-25; Q9967

== ENCOUNTER 2020-02-22 07:49 | Emergency (ER) | payer OTHER ==
--- OUTSIDE RECORDS SUMMARY | 2020-02-22 08:05 | XMS ---
:1995 Author Organization [facility] Care Team Providers Name Role Phone CURTIS AC Unavailable Unavailable ED STAFF PHYSICIAN, STAFF Unavailable Unavailable ED STAFF MAGALI CAZARES Unavailable Unavailable ZUNASSIGNED, ZUNASSIGNED Unavailable Unavailable Re-disclosure Warning The records that you are about to access may contain information from federally- assisted alcohol or drug abuse programs. If such information is present, then the following federally mandated warning applies: This information has been disclosed to you from records protected by federal confidentiality rules (42 CFR part 2). The federal rules prohibit you from making any further disclosure of this information unless further disclosure is expressly permitted by the written consent of the person to whom it pertains or as otherwise permitted by 42 CFR part 2. A general authorization for the release of medical or other information is NOT sufficient for this purpose. The Federal rules restrict any use of the information to criminally investigate or prosecute any alcohol or drug abuse patient.The records that you are about to access may contain highly sensitive health information, the redisclosure of which is protected by Article 27-F of the [facility] Public Health law. If you continue you may haveaccess to information: Regarding HIV / AIDS; Provided by facilities licensed or operated by the [facility] Office of Mental Health; or Provided by the [facility] Office for People With Developmental Disabilities. If such information is present, then the following [facility] mandated warning applies: This information has been disclosed to you from confidential records which are protected by state law. State law prohibits you from making any further disclosure of this information without the specific written consent of the person to whom it pertains, or as otherwise permitted by law. Any unauthorized further disclosure in violation of state law may result in a fine or retirement sentence or both. A general authorization for the release of medical or other information is NOT sufficient authorization for further disclosure. Encounters Encounter Providers Location Date Indications Data Source(s ) Emergency Attender: MAGALI ED H 02/09/2020 [facility] STAFF 10:59:00 AM Medical Laura cameron PHYSICIANAttender: EDT - STAFF ED STAFF 02/09/2020 PHYSICIANAdmitter: 04:26:00 PM [facility] ED STAFF EDT PHYSICIANReferrer: ZUNASSIGNED ZUNASSIGNED Patient discharged. Inpatient Attender: CURTIS ACEVEDO [id number]-[id number] 12/21/2019 01:02:0 0 [facility] HAttender: STAFF ED STAFF PM EDT - 12/22/2019 [facility] PHYSICIANAdmitter: CURTIS 04:15:00 PM EDT JONH ACEVEDO HReferrer: CURTIS Zarco Patient discharged. Insurance Providers Payer name Policy type Policy ID Covered Covered libertarian's Policy P david / Coverage libertarian ID relationship to [facility] type [facility] [place] [id number] [place] [id number] HMO MVP/HHP O [id number] 01 [id number] [facility] [id number] 01 [id number] ACUTE W [id number] 01 [id number] [facility] [id number] 01 [id number] ACUTE MVP/HHP O [id number] 01 [id number] CENTER [id number] MUTUTAL O [id number] 01 [id number] "" O [id number] 01 [id number] [facility] O [id number] 01 [id number] OPTIONS [facility] O [id number] 01 [id number] [facility] [id number] PT [id number] [facility] SELF PAY PT INSURANCE Problems, Conditions, and Diagnoses Code Display Name Description Problem Type Effective Data Sour ce(s) Dates R10.9 Unspecified UNSPECIFIED Diagnosis 02/09/2020 [place] [facility] abdominal pain ABDOMINAL PAIN 10:59:00 AM Medic al Center EDT R19.7 Diarrhea, DIARRHEA, Diagnosis 02/09/2020 [facility] unspecified UNSPECIFIED 10:59:[address] EDT R10.84 Generalized GENERALIZED Diagnosis 02/09/2020 [place] [facility] abdominal pain ABDOMINAL PAIN 10:59:00 AM Medic al Center EDT F12.90 Cannabis use, CANNABIS USE, Diagnosis 12/22/2019 [facility] sephs unspecified, UNSPECIFIED, 04:15:00 PM Medical C enter uncomplicated UNCOMPLICATED EDT A41.9 Sepsis, unspecified SEPSIS, Diagnosis 12/22/2019 [facility] organism UNSPECIFIED 04:15:00 PM Medical Cent er ORGANISM EDT R11.2 Nausea with NAUSEA WITH Diagnosis 12/21/2019 [place] [facility] vomiting, VOMITING, 01:02:00 PM Medical Cente r unspecified UNSPECIFIED EDT Results ID Date Data Source [id number] 02/15/2020 09:29:00 AM EDT [facility] Name Value Range Interpretation Description Data Sup porting Code Source(s) Document(s ) SARS [facility] coronavirus 2 RNA This lab was ordered by [facility] and reported by [facility]. ID Date Data Source Urinalysis.[id number] 02/09/2020 02:44:[address] [facility] 0 Name Value Range Interpretation Description Data Sup porting Code Source(s) Document(s ) UNK CLEAR <content [facility] styleCode="[place] Stefanie d">Urine Medical Clarity Center </content>PATRICIA R <content styleCode="Vikki lics"> (CLEAR )</content> Color of Urine YELLOW <content [facility] styleCode="[place] [facility] d">Color, Medical Urine Center </content>YELL OW <content styleCode="Vikki lics"> (YELLOW )</content> Ketones NEGATIVE <content [facility] [Mass/volume] styleCode="[place] Deans in Urine by d">Urine Medical Test strip Ketone Center </content>NEGA TIVE MG/DL<content styleCode="Vikki lics"> (NEGATIVE MG/DL)</conten t> Glucose NEGATIVE <content [facility] [Mass/volume] styleCode="[place] Deans in Urine by d">Urine Medical Test strip Glucose Center </content>NEGA TIVE MG/DL<content styleCode="Vikki lics"> (NEGATIVE MG/DL)</conten t> UNK NEGATIVE <content [facility] styleCode="[place] Stefan[facility] d">Urine Medical Bilirubin Center </content>NEGA TIVE <content styleCode="Vikki lics"> (NEGATIVE )</content> pH of Urine by 4.5-8.0 <content [facility] Test strip styleCode="[place] Stefanie d">Urine pH Medical </content>7.0 Center <content styleCode="Vikki lics"> (4.5-8.0 )</content> Hemoglobin NEGATIVE <content [facility] [Presence] in styleCode="[place] Watts Urine by Test d">Urine Blood Medical strip </content>NEGA Center TIVE <content styleCode="Vikki lics"> (NEGATIVE )</content> Specific 1.015-1.02 <content [facility] gravity of 5 styleCode="[place] Deans Urine by Test d">Urine Medical strip Specific Center [place] </content>1.01 5 <content styleCode="Vikki lics"> (1.015-1.025 )</content> Protein NEGATIVE <content [facility] [Mass/volume] styleCode="[place] Deans in Urine by d">Urine Medical Test strip Protein Center </content>NEGA TIVE MG/DL<content styleCode="Vikki lics"> (NEGATIVE MG/DL)</conten t> Urobilinogen 0.2-1.0 <content [facility] [Units/volume] styleCode="[place] Watts in Urine by d">Urine Medical Test strip Urobilinogen Center </content>0.2 MG/DL<content styleCode="Vikki lics"> (0.2-1.0 MG/DL)</conten t> Leukocyte NEGATIVE <content [facility] esterase styleCode="[place] Watts [Presence] in d">Urine Medical Urine by Test Leukocyte Center strip </content>NEGA TIVE <content styleCode="Vikki lics"> (NEGATIVE )</content> Nitrite NEGATIVE <content [facility] [Presence] in styleCode="[place] Watts Urine by Test d">Urine Medical strip Nitrite Center </content>NEGA TIVE <content styleCode="Vikki lics"> (NEGATIVE )</content> ID Date Data Source Liver 02/09/2020 12:21:00 PM EDT [facility] Profile.[id number] Name Value Range Interpretation Description Data Sup porting Code Source(s) Document(s ) Alkaline 38-126 <content [facility] phosphatase styleCode="Bold"> Stefanie [Enzymatic Alkaline Medical activity/volume] Phosphatase (ALP) Cente r in Serum or Plasma </content>55 IU/L<content styleCode="Italic s"> (38-126 IU/L)</content> Aspartate 17-59 <content [facility] aminotransferase styleCode="Bold"> Earnest hs [Enzymatic Aspartate Medical activity/volume] Aminotransferase Center in Serum or Plasma (AST) </content>29 IU/L<content styleCode="Italic s"> (17-59 IU/L)</content> Alanine 7-50 <content [facility] aminotransferase styleCode="Bold"> Earnest hs [Enzymatic Alanine Medical activity/volume] Aminotransferase Center in Serum or Plasma (ALT) </content>18 IU/L<content styleCode="Italic s"> (7-50 IU/L)</content> UNK 0.0-0.3 <content [facility] styleCode="Bold"> Stefanie Bilirubin, Direct Medical </content>< 0.2 Center MG/DL<content styleCode="Italic s"> (0.0-0.3 MG/DL)</content> Bilirubin.total 0.2-1.3 <content [facility] [Mass/volume] in styleCode="Bold"> Earnest hs Serum or Plasma Bilirubin Total Medical </content>0.5 Center MG/DL<content styleCode="Italic s"> (0.2-1.3 MG/DL)</content> Albumin 3.5-5.0 <content [facility] [Mass/volume] in styleCode="Bold"> Earnest hs Serum or Plasma Albumin Medical </content>4.6 Center G/DL<content styleCode="Italic s"> (3.5-5.0 G/DL)</content> ID Date Data Source HematologyRou.[id number] 02/09/2020 12:21:[address] [facility] 0400 Name Value Range Interpretation Description Data Sup porting Code Source(s) Document(s ) Leukocytes 4.4-11.0 <content [facility] [#/volume] in styleCode="Bold Stefanie Blood by ">White Blood Medical Automated count Cell Count Center </content>6.38 KCUMM<content styleCode="Ital ics"> (4.4-11.0 KCUMM)</content > Hemoglobin 13.5-17. <content [facility] [Mass/volume] in 5 styleCode="Bold [facility] Blood ">Hemoglobin Medical </content>14.3 Center G/DL<content styleCode="Ital ics"> (13.5-17.5 G/DL)</content> Hematocrit 41.0-53. <content [facility] [Volume 0 styleCode="[facility] Fraction] of ">Hematocrit Medical Blood by </content>43.0 Center Automated count %<content styleCode="Ital ics"> (41.0-53.0 %)</content> Erythrocytes 4.4-5.9 <content [facility] [#/volume] in styleCode="[facility] Stefanie Blood by ">Red Blood Medical Automated count Cell Count Center </content>4.91 MCUMM<content styleCode="Ital ics"> (4.4-5.9 MCUMM)</content > Erythrocyte 11.5-14. <content [facility] distribution 5 styleCode="[facility] Stefanie width [Ratio] by ">Red Cell Medical Automated count Distribution Center Width </content>12.9 %<content styleCode="Ital ics"> (11.5-14.5 %)</content> Erythrocyte mean 32.0-37. <content [facility] corpuscular 0 styleCode="[facility] Stefanie hemoglobin ">Mean Corpus. Medical concentration Hgb Center [Mass/volume] by Concentration Automated count (MCHC) </content>33.3 G/DL<content styleCode="Ital ics"> (32.0-37.0 G/DL)</content> Erythrocyte mean 80.0-100 <content [facility] corpuscular .0 styleCode="[facility] Stefanie volume [Entitic ">Mean Medical volume] by Corpuscular Center Automated count Volume </content>87.6 FL<content styleCode="Ital ics"> (80.0-100.0 FL)</content> Erythrocyte mean 26.0-34. <content [facility] corpuscular 0 styleCode="[facility] Stefanie hemoglobin ">Mean Medical [Entitic mass] Corposcular Center by Automated Hemoglobin count </content>29.1 PG<content styleCode="Ital ics"> (26.0-34.0 PG)</content> UNK 0.0 <content [facility] styleCode="B[facility] Stefanie ">Nucleated Red Medical Blood Cell Center Count </content>0.00 KCUMM<content styleCode="Ital ics"> (0.0 KCUMM)</content > UNK 0 <content [facility] styleCode="B[facility] Stefanie ">Nucleated Red Medical Blood Cell Center </content>0.0 /100<content styleCode="Ital ics"> (0 /100)</content> Platelets 130-400 <content [facility] [#/volume] in styleCode="[facility] Stefanie Blood by ">Platelet Medical Automated count Count Center </content>227 KCUMM<content styleCode="Ital ics"> (130-400 KCUMM)</content > Platelet mean 8.0-11.0 <content [facility] volume [Entitic styleCode="Bold Stefanie volume] in Blood ">Mean Platelet Medical by Automated Volume Center count </content>9.7 FL<content styleCode="Ital ics"> (8.0-11.0 FL)</content> ID Date Data Source GFR(Creatinine).[id number] 02/09/2020 12:21:[address] [facility] 0-0400 Name Value Range Interpretation Code Description Data Dee Dee rce(s) Supporting Document(s ) UNK > 60 <content [facility] styleCode="Bold"> Medical Cent er EGFR </content>128 GFR<content styleCode="Italic s"> (> 60 GFR)</content> ID Date Data Source CHMROUTINECCDA.[id number] 02/09/2020 12:21:[address] [facility] -0400 Name Value Range Interpretation Description Data Sup porting Code Source(s) Document(s ) UNK 30-110 Above high normal <content [facility] styleCode="Bold Medical ">Amylase Center </content>126 IU/L H<content styleCode="Ital ics"> (30-110 IU/L)</content> Lactate 0.7-2.0 Below low normal <content [facility] [Mass/volum styleCode="Bold Medical e] in Serum ">Lactic Acid Center or Plasma </content>0.6 MMOLL L<content styleCode="Ital ics"> (0.7-2.0 MMOLL)</content > ID Date Data Source [facility].[id number] 02/09/2020 12:21:00 PM EDT [facility] Name Value Range Interpretation Description Data Sup porting Code Source(s) Document(s ) Sodium 137-145 Below low <content [facility] [Moles/volume] in normal styleCode="Bold"> [facility] phs Serum or Plasma Sodium Medical </content>136 Center MEQ/L L<content styleCode="Italic s"> (137-145 MEQ/L)</content> UNK 9-20 <content [facility] styleCode="Bold"> Stefanie BUN </content>13 Medical MG/DL<content Center styleCode="Italic s"> (9-20 MG/DL)</content> Potassium 3.5-5.3 <content [facility] [Moles/volume] in styleCode="Bold"> Mynor phs Serum or Plasma Potassium Medical </content>4.8 Center MEQ/L<content styleCode="Italic s"> (3.5-5.3 MEQ/L)</content> Chloride 98-107 <content [facility] [Moles/volume] in styleCode="Bold"> Mynor phs Serum or Plasma Chloride Medical </content>105 Center MEQ/L<content styleCode="Italic s"> (98-107 MEQ/L)</content> Carbon dioxide, 22-30 <content [facility] total styleCode="Bold"> Stefanie [Moles/volume] in Carbon Dioxide Medical Serum or Plasma </content>26 Center MEQ/L<content styleCode="Italic s"> (22-30 MEQ/L)</content> Creatinine 0.5-1.3 <content [facility] [Mass/volume] in styleCode="Bold"> Earnest hs Serum or Plasma Creatinine Medical </content>0.8 Center MG/DL<content styleCode="Italic s"> (0.5-1.3 MG/DL)</content> Glucose 74-106 <content [facility] [Mass/volume] in styleCode="Bold"> Earnest hs Serum or Plasma Glucose Medical </content>95 Center MG/DL<content styleCode="Italic s"> (74-106 MG/DL)</content> Calcium 8.4-10. <content [facility] [Mass/volume] in 2 styleCode="Bold"> Earnest hs Serum or Plasma Calcium Medical </content>9.8 Center MG/DL<content styleCode="Italic s"> (8.4-10.2 MG/DL)</content> Alkaline 38-126 <content [facility] phosphatase styleCode="Bold"> Stefanie [Enzymatic Alkaline Medical activity/volume] Phosphatase (ALP) Cente r in Serum or Plasma </content>55 IU/L<content styleCode="Italic s"> (38-126 IU/L)</content> UNK > 60 <content [facility] styleCode="Bold"> [facility]ie EGFR Medical </content>128 Center GFR<content styleCode="Italic s"> (> 60 GFR)</content> Aspartate 17-59 <content [facility] aminotransferase styleCode="Bold"> Earnest hs [Enzymatic Aspartate Medical activity/volume] Aminotransferase Center in Serum or Plasma (AST) </content>29 IU/L<content styleCode="Italic s"> (17-59 IU/L)</content> Alanine 7-50 <content [facility] aminotransferase styleCode="Bold"> Earnest hs [Enzymatic Alanine Medical activity/volume] Aminotransferase Center in Serum or Plasma (ALT) </content>18 IU/L<content styleCode="Italic s"> (7-50 IU/L)</content> Bilirubin.total 0.2-1.3 <content [facility] [Mass/volume] in styleCode="Bold"> Earnest hs Serum or Plasma Bilirubin Total Medical </content>0.5 Center MG/DL<content styleCode="Italic s"> (0.2-1.3 MG/DL)</content> Albumin 3.5-5.0 <content [facility] [Mass/volume] in styleCode="Bold"> Earnest hs Serum or Plasma Albumin Medical </content>4.6 Center G/DL<content styleCode="Italic s"> (3.5-5.0 G/DL)</content> ID Date Data Source Liver 12/22/2019 06:35:00 AM EDT [facility] Profile.[id number] Name Value Range Interpretation Description Data Sup porting Code Source(s) Document(s ) Aspartate 17-59 <content [facility] aminotransferase styleCode="Bold"> Earnest hs [Enzymatic Aspartate Medical activity/volume] Aminotransferase Center in Serum or Plasma (AST) </content>30 IU/L<content styleCode="Italic s"> (17-59 IU/L)</content> Alanine 7-50 <content [facility] aminotransferase styleCode="Bold"> Earnest hs [Enzymatic Alanine Medical activity/volume] Aminotransferase Center in Serum or Plasma (ALT) </content>18 IU/L<content styleCode="Italic s"> (7-50 IU/L)</content> Albumin 3.5-5.0 <content [facility] [Mass/volume] in styleCode="Bold"> Earnest hs Serum or Plasma Albumin Medical </content>3.7 Center G/DL<content styleCode="Italic s"> (3.5-5.0 G/DL)</content> Alkaline 38-126 <content [facility] phosphatase styleCode="Bold"> Stefanie [Enzymatic Alkaline Medical activity/volume] Phosphatase (ALP) Cente r in Serum or Plasma </content>47 IU/L<content styleCode="Italic s"> (38-126 IU/L)</content> Bilirubin.total 0.2-1.3 <content [facility] [Mass/volume] in styleCode="Bold"> Earnest hs Serum or Plasma Bilirubin Total Medical </content>0.9 Center MG/DL<content styleCode="Italic s"> (0.2-1.3 MG/DL)</content> ID Date Data Source LIPID.[id number] 12/22/2019 06:35:[address] [facility] Name Value Range Interpretation Description Data Sup porting Code Source(s) Document(s ) Triglyceride < 150 <content [facility] [Mass/volume] in styleCode="[place] Stefanie Serum or Plasma d">Triglycerid [facility] Center </content>47 MG/DL<content styleCode="Vikki lics"> (< 150 MG/DL)</conten t> UNK > 60 Below low normal <content [facility] styleCode="[place] Stefanie d">HDL- Medical Cholesterol Center </content>58 MG/DL L<content styleCode="Vikki lics"> (> 60 MG/DL)</conten t> UNK < 100 <content [facility] styleCode="[place] Stefanie d">LDL-Cholest Medical yuki Center </content>35 MG/DL<content styleCode="Vikki lics"> (< 100 MG/DL)</conten t> Cholesterol -<200 <content [facility] [Mass/volume] in styleCode="[place] Stefanie Serum or Plasma d">Cholesterol Medical </content>102 Center MG/DL<content styleCode="Vikki lics"> (-<200 MG/DL)</conten t> ID Date Data Source HematologyRou.[id number] 12/22/2019 06:35:00 AM EDT [facility] 0400 Name Value Range Interpretation Description Data Sup porting Code Source(s) Document(s ) Hematocrit 41.0-53. Below low normal <content [facility] [Volume 0 styleCode="Bold Stefanie Fraction] of ">Hematocrit Medical Blood by </content>37.0 Center Automated count % L<content styleCode="Ital ics"> (41.0-53.0 %)</content> Leukocytes 4.4-11.0 Above high <content [facility] [#/volume] in normal styleCode="Bold Stefanie Blood by ">White Blood Medical Automated count Cell Count Center </content>12.73 KCUMM H<content styleCode="Ital ics"> (4.4-11.0 KCUMM)</content > Hemoglobin 13.5-17. Below low normal <content [facility] [Mass/volume] in 5 styleCode="Bold Stefanie Blood ">Hemoglobin Medical </content>12.5 Center G/DL L<content styleCode="Ital ics"> (13.5-17.5 G/DL)</content> Erythrocytes 4.4-5.9 Below low normal <content [facility] [#/volume] in styleCode="Bold Stefanie Blood by ">Red Blood Medical Automated count Cell Count Center </content>4.25 MCUMM L<content styleCode="Ital ics"> (4.4-5.9 MCUMM)</content > Erythrocyte mean 80.0-100 <content [facility] corpuscular .0 styleCode="Bold Stefanie volume [Entitic ">Mean Medical volume] by Corpuscular Center Automated count Volume </content>87.1 FL<content styleCode="Ital ics"> (80.0-100.0 FL)</content> Erythrocyte mean 32.0-37. <content [facility] corpuscular 0 styleCode="Bold Stefanie hemoglobin ">Mean Corpus. Medical concentration Hgb Center [Mass/volume] by Concentration Automated count (MCHC) </content>33.8 G/DL<content styleCode="Ital ics"> (32.0-37.0 G/DL)</content> Erythrocyte 11.5-14. <content [facility] distribution 5 styleCode="Sonia Watts width [Ratio] by ">Red Cell Medical Automated count Distribution Center Width </content>13.2 %<content styleCode="Ital ics"> (11.5-14.5 %)</content> Platelets 130-400 <content [facility] [#/volume] in styleCode="Bold Stefanie Blood by ">Platelet Medical Automated count Count Center </content>211 KCUMM<content styleCode="Ital ics"> (130-400 KCUMM)</content > Erythrocyte mean 26.0-34. <content [facility] corpuscular 0 styleCode="Bold Stefanie hemoglobin ">Mean Medical [Entitic mass] Corposcular Center by Automated Hemoglobin count </content>29.4 PG<content styleCode="Ital ics"> (26.0-34.0 PG)</content> UNK 0 <content [facility] styleCode="Bold Stefanie ">Nucleated Red Medical Blood Cell Center </content>0.0 /100<content styleCode="Ital ics"> (0 /100)</content> UNK 0.0 <content [facility] styleCode="Bold Stefanie ">Nucleated Red Medical Blood Cell Center Count </content>0.00 KCUMM<content styleCode="Ital ics"> (0.0 KCUMM)</content > Platelet mean 8.0-11.0 <content [facility] volume [Entitic styleCode="Bold Stefanie volume] in Blood ">Mean Platelet Medical by Automated Volume Center count </content>9.9 FL<content styleCode="Ital ics"> (8.0-11.0 FL)</content> ID Date Data Source GFR(Creatinine).[id number] 12/22/2019 06:35:00 AM EDT [facility] 0-0400 Name Value Range Interpretation Code Description Data Dee Dee rce(s) Supporting Document(s ) UNK > 60 <content [facility] styleCode="Bold"> Medical Cent er EGFR </content>112 GFR<content styleCode="Italic s"> (> 60 GFR)</content> ID Date Data Source Coagulation 12/22/2019 06:35:[address] [facility] Rout.[id number] EDT Name Value Range Interpretation Description Data Sup porting Code Source(s) Document(s ) UNK 9.0-13.0 Above high normal <content [facility] styleCode="Bold" Stefanie >Protime Medical </content>14.0 Center SEC H<content styleCode="Itali cs"> (9.0-13.0 SEC)</content> aPTT in 25.1-36. <content [facility] Platelet poor 5 styleCode="Bold" Stefanie plasma by >Partial Medical Coagulation Thromboplastin Center assay Time </content>29.4 SEC<content styleCode="Itali cs"> (25.1-36.5 SEC)</content> INR in 0.80-1.2 Above high normal <content [facility] Platelet poor 0 styleCode="Bold" Stefanie plasma by >INR Medical Coagulation </content>1.26 # Center assay H<content styleCode="Itali cs"> (0.80-1.20 #)</content> ID Date Data Source CHMROUTINECCDA.[id number] 12/22/2019 06:35:00 AM EDT [facility] -0400 Name Value Range Interpretation Description Data Sup porting Code Source(s) Document(s ) UNK >= 1.0 <content [facility] styleCode="[place] Stefanie d">AG Ratio Medical </content>1.7 Center <content styleCode="Vikki lics"> (>= 1.0 )</content> Magnesium 1.6-2.3 <content [facility] [Mass/volume] styleCode="[place] Stefanie in Serum or d">Magnesium Medical Plasma </content>1.7 Center MG/DL<content styleCode="Vikki lics"> (1.6-2.3 MG/DL)</conten t> UNK 30-110 <content [facility] styleCode="[place] Stefanie d">Amylase Medical </content>110 Center IU/L<content styleCode="Vikki lics"> (30-110 IU/L)</content > Lactate 0.7-2.0 <content [facility] [Mass/volume] styleCode="Qu[place] Deans in Serum or d">Lactic Acid Medical Plasma </content>1.1 Center MMOLL<content styleCode="Vikki lics"> (0.7-2.0 MMOLL)</conten t> Lipase 23-300 <content [facility] [Enzymatic styleCode="[facility] activity/volu d">Lipase Medical me] in Serum </content>43 Center or Plasma IU/L<content styleCode="Vikki lics"> (23-300 IU/L)</content > UNK 2.3-3.5 Below low normal <content [facility] styleCode="[place] Stefanie d">Globulin Medical </content>2.2 Center G/DL L<content styleCode="Vikki lics"> (2.3-3.5 G/DL)</content > Phosphate 2.5-4.5 <content [facility] [Mass/volume] styleCode="[place] Deans in Serum or d">Phosphorus Medical Plasma </content>3.3 Center MG/DL<content styleCode="Vikki lics"> (2.5-4.5 MG/DL)</conten t> Protein 6.3-8.2 Below low normal <content [facility] [Mass/volume] styleCode="Qu[place] Deans in Serum or d">Total Medical Plasma Protein Center </content>5.9 G/DL L<content styleCode="Vikki lics"> (6.3-8.2 G/DL)</content > ID Date [facility][id number] 12/22/2019 06:35:[address] [facility] Name Value Range Interpretation Code Description Data Dee Dee rce(s) Supporting Document(s ) UNK NEGATIVE <content [facility] [facility] styleCode[facility]Bold[facility] >Antibody Screen </content>NEGATI VE <content styleCode="Itali cs"> (NEGATIVE )</content> UNK <content [facility] styleCode="Bold" Medical Cente r >RH Type </content>POSITI VE (Reference Range: not available)
UNK <content [facility]Code[facility]old[facility] >Blood Type </content>GROUP O (Reference Range: not available)
ID Date Data Source [facility].[id number] 12/22/2019 06:35:00 AM EDT [facility] Center Name Value Range Interpretation Description Data Sup porting Code Source(s) Document(s ) Potassium 3.5-5.3 <content [facility] [Moles/volume] in styleCode="Bold"> Mynor phs Serum or Plasma Potassium Medical </content>3.6 Center MEQ/L<content styleCode="Italic s"> (3.5-5.3 MEQ/L)</content> Sodium 137-145 Below low <content [facility] [Moles/volume] in normal styleCode="Bold"> Mynor phs Serum or Plasma Sodium Medical </content>136 Center MEQ/L L<content styleCode="Italic s"> (137-145 MEQ/L)</content> Glucose 74-106 <content [facility] [Mass/volume] in styleCode="Bold"> Earnest hs Serum or Plasma Glucose Medical </content>101 Center MG/DL<content styleCode="Italic s"> (74-106 MG/DL)</content> Creatinine 0.5-1.3 <content [facility] [Mass/volume] in styleCode="Bold"> Earnest hs Serum or Plasma Creatinine Medical </content>0.9 Center MG/DL<content styleCode="Italic s"> (0.5-1.3 MG/DL)</content> Carbon dioxide, 22-30 <content [facility] total styleCode="Bold"> Stefanie [Moles/volume] in Carbon Dioxide Medical Serum or Plasma </content>24 Center MEQ/L<content styleCode="Italic s"> (22-30 MEQ/L)</content> UNK 9-20 Below low <content [facility] normal styleCode="Bold"> Stefanie BUN </content>6 Medical MG/DL L<content Center styleCode="Italic s"> (9-20 MG/DL)</content> Chloride 98-107 <content [facility] [Moles/volume] in styleCode="Bold"> Mynor phs Serum or Plasma Chloride Medical </content>107 Center MEQ/L<content styleCode="Italic s"> (98-107 MEQ/L)</content> Aspartate 17-59 <content [facility] aminotransferase styleCode="Bold"> Earnest hs [Enzymatic Aspartate Medical activity/volume] Aminotransferase Center in Serum or Plasma (AST) </content>30 IU/L<content styleCode="Italic s"> (17-59 IU/L)</content> Calcium 8.4-10. <content [facility] [Mass/volume] in 2 styleCode="Bold"> Earnest hs Serum or Plasma Calcium Medical </content>9.1 Center MG/DL<content styleCode="Italic s"> (8.4-10.2 MG/DL)</content> UNK > 60 <content [facility] styleCode="Bold"> Stefanie EGFR Medical </content>112 Center GFR<content styleCode="Italic s"> (> 60 GFR)</content> Alanine 7-50 <content [facility] aminotransferase styleCode="Bold"> Earnest hs [Enzymatic Alanine Medical activity/volume] Aminotransferase Center in Serum or Plasma (ALT) </content>18 IU/L<content styleCode="Italic s"> (7-50 IU/L)</content> Alkaline 38-126 <content [facility] phosphatase styleCode="Bold"> Stefanie [Enzymatic Alkaline Medical activity/volume] Phosphatase (ALP) Cente r in Serum or Plasma </content>47 IU/L<content styleCode="Italic s"> (38-126 IU/L)</content> Albumin 3.5-5.0 <content [facility] [Mass/volume] in styleCode="Bold"> Earnest hs Serum or Plasma Albumin Medical </content>3.7 Center G/DL<content styleCode="Italic s"> (3.5-5.0 G/DL)</content> Bilirubin.total 0.2-1.3 <content [facility] [Mass/volume] in styleCode="Bold"> Earnest hs Serum or Plasma Bilirubin Total Medical </content>0.9 Center MG/DL<content styleCode="Italic s"> (0.2-1.3 MG/DL)</content> ID Date Data Source Urinalysis.[id number] 12/21/2019 05:20:00 PM EDT [facility] 0 Name Value Range Interpretation Description Data Sup porting Code Source(s) Document(s ) UNK CLEAR <content [facility] styleCode[facility] d">Urine Medical Clarity Center </content>PATRICIA R <content styleCode="Vikki lics"> (CLEAR )</content> Color of Urine YELLOW <content [facility] styleCode="[facility] d">Color, Medical Urine Center </content>YELL OW <content styleCode="Vikki lics"> (YELLOW )</content> Glucose NEGATIVE <content [facility] [Mass/volume] styleCode="[facility] in Urine by d">Urine Medical Test strip Glucose Center </content>NEGA TIVE MG/DL<content styleCode="Vikki lics"> (NEGATIVE MG/DL)</conten t> pH of Urine by 4.5-8.0 <content Saint Test strip styleCode="[facility] Deans d">Urine pH Medical </content>7.0 Center <content styleCode="Vikki lics"> (4.5-8.0 )</content> Specific 1.015-1.02 Below low normal <content [facility] gravity of 5 styleCode="Quincy Deans Urine by Test d">Urine Medical strip Specific Center [place] </content>1.01 0 L<content styleCode="Vikki lics"> (1.015-1.025 )</content> UNK NEGATIVE <content [facility] styleCode="[facility] Stefanie d">Urine Medical Bilirubin Center </content>NEGA TIVE <content styleCode="Vikki lics"> (NEGATIVE )</content> Ketones NEGATIVE <content [facility] [Mass/volume] styleCode="Quin[place] Deans in Urine by d">Urine Medical Test strip Ketone Center </content>NEGA TIVE MG/DL<content styleCode="Vikki lics"> (NEGATIVE MG/DL)</conten t> Hemoglobin NEGATIVE <content [facility] [Presence] in styleCode="Quin[place] Deans Urine by Test d">Urine Blood Medical strip </content>NEGA Center TIVE <content styleCode="Vikki lics"> (NEGATIVE )</content> Nitrite NEGATIVE <content [facility] [Presence] in styleCode="[place] Stefanie Urine by Test d">Urine Medical strip Nitrite Center </content>NEGA TIVE <content styleCode="Vikki lics"> (NEGATIVE )</content> Protein NEGATIVE <content [facility] [Mass/volume] styleCode="[place] Stefanie in Urine by d">Urine Medical Test strip Protein Center </content>NEGA TIVE MG/DL<content styleCode="Vikki lics"> (NEGATIVE MG/DL)</conten t> Urobilinogen 0.2-1.0 <content [facility] [Units/volume] styleCode="[facility] Stefanie in Urine by d">Urine Medical Test strip Urobilinogen Center </content>0.2 MG/DL<content styleCode="Vikki lics"> (0.2-1.0 MG/DL)</conten t> Leukocyte NEGATIVE <content Saint esterase styleCode="Quincy Deans [Presence] in d">Urine Medical Urine by Test Leukocyte Center strip </content>NEGA TIVE <content styleCode="Vikki lics"> (NEGATIVE )</content> ID Date Data Source CHMROUTINECCDA.[id number] 12/21/2019 05:17:[address] [facility] -0400 Name Value Range Interpretation Code Description Data Dee Dee rce(s) Supporting Document(s ) UNK 0.7-2.0 <content [facility] styleCode="Bold" Medical Cente r >Lactic Acid 4hr </content>1.2 MMOLL<content styleCode="Itali cs"> (0.7-2.0 MMOLL)</content> ID Date Data Source CHMROUTINECCDA.[id number] 12/21/2019 04:45:[address] [facility] -0400 Name Value Range Interpretation Code Description Data Dee Dee rce(s) Supporting Document(s ) UNK 4.2-5.8 <content [facility] styleCode="Bold" Medical Cente r >Hemoglobin A1C </content>5.4 %<content styleCode="Itali cs"> (4.2-5.8 %)</content> ID Date Data Source CHMROUTINECCDA.[id number] 12/21/2019 03:54:[address] [facility] -0400 Name Value Range Interpretation Description Data Sup porting Code Source(s) Document(s ) Cannabinoids <content [facility] [Presence] in styleCode="[place]in[place] Watts Urine by Screen d">Cannabinoid Medical method >50 ng/mL s [place] </content>PRES UMPTIVE POSITIVE NG/ML (Reference Range: not available)<br/ > ID Date Data Source Microbiology.[id number] 12/21/2019 03:30:[address] [facility] 400 Name Value Range Interpretation Code Description Data Dee Dee rce(s) Supporting Document(s ) UNK <item><content [facility] styleCode="Bold"> Medical Cent er Culture Report </content>
<t able><tbody><tr>< td>Specimen Number:</td><td>[id number]</td></tr ><tr><td>Sample Collection Date/Time: </td><td>12/21/2019 3:30 PM</td></tr><tr>< td>Specimen Source:</td><td>B LOOD</td></tr><tr ><td>Blood Culture:</td><td> Collection Plate Date: 12/21/2019 15:38 </td></tr><tr><td >Culture Status:</td><td>P reliminary </td></tr><tr><td >Culture Report:</td><td>C ulture in progress </td></tr></tbody ></table></item> UNK <item><content [facility] styleCode="Bold"> Medical Cent er Culture Status </content>
<t able><tbody><tr>< td>Specimen Number:</td><td>[id number]</td></tr ><tr><td>Sample Collection Date/Time: </td><td>12/21/2019 3:30 PM</td></tr><tr>< td>Specimen Source:</td><td>B LOOD</td></tr><tr ><td>Culture Report:</td><td>C ulture in progress </td></tr><tr><td >Culture Status:</td><td>P reliminary </td></tr><tr><td >Blood Culture:</td><td> Collection Plate Date: 12/21/2019 15:38 </td></tr></tbody ></table></item> ID Date Data Source Microbiology.[id number] 12/21/2019 03:15:[address] [facility] 400 Name Value Range Interpretation Code Description Data Dee Dee rce(s) Supporting Document(s ) UNK <item><content [facility] styleCode="Bold"> Medical [facility] er Culture Status </content>
<t able><tbody><tr>< td>Specimen Number:</td><td>[id number]</td></tr ><tr><td>Sample Collection Date/Time: </td><td>12/21/2019 3:15 PM</td></tr><tr>< td>Specimen Source:</td><td>B LOOD</td></tr><tr ><td>Culture Report:</td><td>C ulture in progress </td></tr><tr><td >Culture Status:</td><td>P reliminary </td></tr><tr><td >Blood Culture:</td><td> Collection Plate Date: 12/21/2019 15:22 </td></tr></tbody ></table></item> UNK <item><content [facility] styleCode="Bold"> Medical Cent er Culture Report </content>
<t able><tbody><tr>< td>Specimen Number:</td><td>[id number]</td></tr ><tr><td>Sample Collection Date/Time: </td><td>12/21/2019 3:15 PM</td></tr><tr>< td>Specimen Source:</td><td>B LOOD</td></tr><tr ><td>Blood Culture:</td><td> Collection Plate Date: 12/21/2019 15:22 </td></tr><tr><td >Culture Status:</td><td>P reliminary </td></tr><tr><td >Culture Report:</td><td>C ulture in progress </td></tr></tbody ></table></item> ID Date Data Source Liver 12/21/2019 01:36:00 PM EDT [facility] Profile.[id number] Name Value Range Interpretation Description Data Sup porting Code Source(s) Document(s ) Aspartate 17-59 <content [facility] aminotransferase styleCode="Bold"> Earnest hs [Enzymatic Aspartate Medical activity/volume] Aminotransferase Center in Serum or Plasma (AST) </content>26 IU/L<content styleCode="Italic s"> (17-59 IU/L)</content> Alkaline 38-126 <content [facility] phosphatase styleCode="Bold"> Stefanie [Enzymatic Alkaline Medical activity/volume] Phosphatase (ALP) Cente r in Serum or Plasma </content>68 IU/L<content styleCode="Italic s"> (38-126 IU/L)</content> Alanine 7-50 <content [facility] aminotransferase styleCode="Bold"> Earnest hs [Enzymatic Alanine Medical activity/volume] Aminotransferase Center in Serum or Plasma (ALT) </content>22 IU/L<content styleCode="Italic s"> (7-50 IU/L)</content> UNK 0.0-0.3 <content [facility] styleCode="Bold"> Stefanie Bilirubin, Direct Medical </content>< 0.2 Center MG/DL<content styleCode="Italic s"> (0.0-0.3 MG/DL)</content> Albumin 3.5-5.0 Above high <content [facility] [Mass/volume] in normal styleCode="Bold"> Earnest hs Serum or Plasma Albumin Medical </content>5.1 Center G/DL H<content styleCode="Italic s"> (3.5-5.0 G/DL)</content> Bilirubin.total 0.2-1.3 <content [facility] [Mass/volume] in styleCode="Bold"> Earnest hs Serum or Plasma Bilirubin Total Medical </content>0.5 Center MG/DL<content styleCode="Italic s"> (0.2-1.3 MG/DL)</content> ID Date Data Source HematologyRou.[id number] 12/21/2019 01:36:00 PM EDT [facility] 0400 Name Value Range Interpretation Description Data Sup porting Code Source(s) Document(s ) Leukocytes 4.4-11.0 Above high <content [facility] [#/volume] in normal styleCode="Bold Stefanie Blood by ">White Blood Medical Automated count Cell Count Center </content>14.51 KCUMM H<content styleCode="Ital ics"> (4.4-11.0 KCUMM)</content > Erythrocyte mean 80.0-100 <content [facility] corpuscular .0 styleCode="Bold Stefanie volume [Entitic ">Mean Medical volume] by Corpuscular Center Automated count Volume </content>86.8 FL<content styleCode="Ital ics"> (80.0-100.0 FL)</content> Hematocrit 41.0-53. <content [facility] [Volume 0 styleCode="Bold Stefanie Fraction] of ">Hematocrit Medical Blood by </content>42.8 Center Automated count %<content styleCode="Ital ics"> (41.0-53.0 %)</content> Erythrocytes 4.4-5.9 <content [facility] [#/volume] in styleCode="Bold Stefanie Blood by ">Red Blood Medical Automated count Cell Count Center </content>4.93 MCUMM<content styleCode="Ital ics"> (4.4-5.9 MCUMM)</content > Hemoglobin 13.5-17. <content [facility] [Mass/volume] in 5 styleCode="Bold Stefanie Blood ">Hemoglobin Medical </content>14.4 Center G/DL<content styleCode="Ital ics"> (13.5-17.5 G/DL)</content> Erythrocyte mean 32.0-37. <content [facility] corpuscular 0 styleCode="Bold Stefanie hemoglobin ">Mean Corpus. Medical concentration Hgb Center [Mass/volume] by Concentration Automated count (MCHC) </content>33.6 G/DL<content styleCode="Ital ics"> (32.0-37.0 G/DL)</content> Erythrocyte mean 26.0-34. <content [facility] corpuscular 0 styleCode="Bold Stefanie hemoglobin ">Mean Medical [Entitic mass] Corposcular Center by Automated Hemoglobin count </content>29.2 PG<content styleCode="Ital ics"> (26.0-34.0 PG)</content> Platelet mean 8.0-11.0 <content [facility] volume [Entitic styleCode="Bold Stefanie volume] in Blood ">Mean Platelet Medical by Automated Volume Center count </content>9.8 FL<content styleCode="Ital ics"> (8.0-11.0 FL)</content> Erythrocyte 11.5-14. <content [facility] distribution 5 styleCode="Bold Stefanie width [Ratio] by ">Red Cell Medical Automated count Distribution Center Width </content>13.2 %<content styleCode="Ital ics"> (11.5-14.5 %)</content> Platelets 130-400 <content [facility] [#/volume] in styleCode="Bold Stefanie Blood by ">Platelet Medical Automated count Count Center </content>270 KCUMM<content styleCode="Ital ics"> (130-400 KCUMM)</content > UNK 0.0 <content [facility] styleCode="Bold Stefanie ">Nucleated Red Medical Blood Cell Center Count </content>0.00 KCUMM<content styleCode="Ital ics"> (0.0 KCUMM)</content > UNK 0 <content [facility] styleCode="Bold Stefanie ">Nucleated Red Medical Blood Cell Center </content>0.0 /100<content styleCode="Ital ics"> (0 /100)</content> ID Date Data Source GFR(Creatinine).[id number] 12/21/2019 01:36:[address] [facility] 0-0400 Name Value Range Interpretation Code Description Data Dee Dee rce(s) Supporting Document(s ) UNK > 60 <content [facility] styleCode="Bold"> Medical Cent er EGFR </content>112 GFR<content styleCode="Italic s"> (> 60 GFR)</content> ID Date Data Source CHMROUTINECCDA.[id number] 12/21/2019 01:36:[address] [facility] -0400 Name Value Range Interpretation Description Data Sup porting Code Source(s) Document(s ) Lipase 23-300 <content [facility] [Enzymatic styleCode="Bold Medical activity/vo ">Lipase Center lume] in </content>105 Serum or IU/L<content Plasma styleCode="Ital ics"> (23-300 IU/L)</content> UNK 30-110 Above high normal <content [place] s styleCode="Bold Medical ">Amylase Center </content>204 IU/L H<content styleCode="Ital ics"> (30-110 IU/L)</content> Lactate 0.7-2.0 Above upper panic <content [place] s [Mass/volum limits styleCode="Bold Medical e] in Serum ">Lactic Acid Center or Plasma </content><cont ent styleCode="Bold ">2.3 MMOLL HH</content><co ntent styleCode="Ital ics"> (0.7-2.0 MMOLL)</content > ID Date Data Source [id number] 12/21/2019 01:36:00 PM EDT [facility] Name Value Range Interpretation Description Data Sup porting Code Source(s) Document(s ) Carbon dioxide, 22-30 <content [facility] total styleCode="Bold"> Stefanie [Moles/volume] in Carbon Dioxide Medical Serum or Plasma </content>23 Center MEQ/L<content styleCode="Italic s"> (22-30 MEQ/L)</content> Potassium 3.5-5.3 <content [facility] [Moles/volume] in styleCode="Bold"> Mynor phs Serum or Plasma Potassium Medical </content>4.0 Center MEQ/L<content styleCode="Italic s"> (3.5-5.3 MEQ/L)</content> Sodium 137-145 <content [facility] [Moles/volume] in styleCode="Bold"> Mynor phs Serum or Plasma Sodium Medical </content>139 Center MEQ/L<content styleCode="Italic s"> (137-145 MEQ/L)</content> Chloride 98-107 <content [facility] [Moles/volume] in styleCode="Bold"> Mynor phs Serum or Plasma Chloride Medical </content>106 Center MEQ/L<content styleCode="Italic s"> (98-107 MEQ/L)</content> Creatinine 0.5-1.3 <content [facility] [Mass/volume] in styleCode="Bold"> Earnest hs Serum or Plasma Creatinine Medical </content>0.9 Center MG/DL<content styleCode="Italic s"> (0.5-1.3 MG/DL)</content> Glucose 74-106 Above high <content [facility] [Mass/volume] in normal styleCode="Bold"> Earnest hs Serum or Plasma Glucose Medical </content>129 Center MG/DL H<content styleCode="Italic s"> (74-106 MG/DL)</content> UNK 9-20 <content [facility] styleCode="Bold"> Stefanie BUN </content>10 Medical MG/DL<content Center styleCode="Italic s"> (9-20 MG/DL)</content> UNK > 60 <content [facility] styleCode="Bold"> Stefanie EGFR Medical </content>112 Center GFR<content styleCode="Italic s"> (> 60 GFR)</content> Calcium 8.4-10. <content [facility] [Mass/volume] in 2 styleCode="Bold"> Earnest hs Serum or Plasma Calcium Medical </content>9.9 Center MG/DL<content styleCode="Italic s"> (8.4-10.2 MG/DL)</content> Bilirubin.total 0.2-1.3 <content [facility] [Mass/volume] in styleCode="Bold"> Earnest hs Serum or Plasma Bilirubin Total Medical </content>0.5 Center MG/DL<content styleCode="Italic s"> (0.2-1.3 MG/DL)</content> Alkaline 38-126 <content [facility] phosphatase styleCode="Bold"> Stefanie [Enzymatic Alkaline Medical activity/volume] Phosphatase (ALP) Cente r in Serum or Plasma </content>68 IU/L<content styleCode="Italic s"> (38-126 IU/L)</content> Albumin 3.5-5.0 Above high <content [facility] [Mass/volume] in normal styleCode="Bold"> Earnest hs Serum or Plasma Albumin Medical </content>5.1 Center G/DL H<content styleCode="Italic s"> (3.5-5.0 G/DL)</content> Alanine 7-50 <content [facility] aminotransferase styleCode="Bold"> Earnest hs [Enzymatic Alanine Medical activity/volume] Aminotransferase Center in Serum or Plasma (ALT) </content>22 IU/L<content styleCode="Italic s"> (7-50 IU/L)</content> Aspartate 17-59 <content [facility] aminotransferase styleCode="Bold"> Earnest hs [Enzymatic Aspartate Medical activity/volume] Aminotransferase Center in Serum or Plasma (AST) </content>26 IU/L<content styleCode="Italic s"> (17-59 IU/L)</content> ID Date Data Source [id number] 12/21/2019 12:00:00 AM EDT [facility] Name Value Range Interpretation Code Description Data Dee Dee rce(s) Supporting Document(s ) [facility] QUIRINO+probe- Imp This lab was ordered by [facility] and reported by [employer] [facility]. Procedure Social History Code Duration Value Status Description Data Source(s ) Smoking 02/09/2020 Denies Ever completed Denies Ever Smoked [facility] 11:34:00 AM EDT Smoked Medical C enter Smoking 02/09/2020 Denies Ever completed Denies Ever Smoked [facility] 11:34:00 AM EDT Smoked Medical C enter Smoking 02/09/2020 Denies Ever completed Denies Ever Smoked [facility] 11:18:00 AM EDT Smoked Medical C enter Smoking 02/09/2020 Denies Ever completed Denies Ever Smoked [facility] 11:12:00 AM EDT Smoked Medical C enter Smoking 12/22/2019 Denies Ever completed Denies Ever Smoked [facility] 07:41:00 AM EDT Smoked Medical C enter Smoking 12/21/2019 Daily Smoker completed Daily Smoker [facility] 07:53:00 PM EDT Medical C enter Smoking 12/21/2019 Denies Ever completed Denies Ever Smoked [facility] 04:44:00 PM EDT Smoked Medical C enter Smoking 12/21/2019 Denies Ever completed Denies Ever Smoked [facility] 01:15:00 PM EDT Smoked Medical C enter Smoking 12/21/2019 Denies Ever completed Denies Ever Smoked [facility] 01:11:00 PM EDT Smoked Medical C enter Vital Signs ID Date Data Source UNK Name Value Range Interpretation Code Description Data Source(s) Body temperature 36.402128 36.201205 [facility] Respiratory rate 18 /min 18 /min [facility] Oxygen saturation 97 % 97 % [facility]sep in Arterial blood [facility] Center by Pulse oximetry Heart rate 72 /min 72 /min [facility] Diastolic blood 70 mm[Hg] 70 mm[Hg] [facility] pressure Medical Center Systolic blood 117 mm[Hg] 117 mm[Hg] [facility] pressure Medical Center Body weight 55.723185 kg 55.684435 kg [facility] Measured Medical [place] Body temperature 36.916762 36.041154 [facility] Respiratory rate 18 /min 18 /min [facility] Oxygen saturation 99 % 99 % [facility] in Arterial blood Medical Center by Pulse oximetry Heart rate 75 /min 75 /min [facility] Body height 165.429365 165.070955 cm [facility] Medical [place] Diastolic blood 70 mm[Hg] 70 mm[Hg] [facility] pressure Medical Center Systolic blood 121 mm[Hg] 121 mm[Hg] [facility] Center Body mass index 20.1 kg/m2 20.1 kg/m2 [facility] (BMI) [Ratio] Medical [facility] ter Body temperature 37.039719 37.717374 [facility] Respiratory rate 20 /min 20 /min [facility] Heart rate 60 /min 60 /min [facility] Diastolic blood 62 mm[Hg] 62 mm[Hg] [facility] pressure Medical Center Systolic blood 121 mm[Hg] 121 mm[Hg] [facility] Medical Center Body temperature 37.424280 37.626309 [facility] Respiratory rate 20 /min 20 /min [facility] Heart rate 64 /min 64 /min [facility] Diastolic blood 62 mm[Hg] 62 mm[Hg] [facility] Medical Center Systolic blood 106 mm[Hg] 106 mm[Hg] [facility] Medical Center Body temperature 37.364323 37.755459 [facility] Respiratory rate 18 /min 18 /min [facility] Heart rate 75 /min 75 /min [facility] Diastolic blood 46 mm[Hg] 46 mm[Hg] [facility] Medical Center Systolic blood 105 mm[Hg] 105 mm[Hg] [facility] Center Body weight 54.827411 kg 54.109912 kg [facility] Measured Medical Center Body height 165.736670 165.999887 cm [facility] Medical [place] Body mass index 19.97 kg/m2 19.97 kg/m2 [facility] bishop (BMI) [Ratio] Medical [facility] ter Body weight 52.342914 kg 52.753398 kg [facility] Measured Medical Center Body temperature 37.434371 37.235312 [facility] Center Respiratory rate 20 /min 20 /min [facility] Center Heart rate 84 /min 84 /min [facility] Body height 165.045126 165.267861 cm [facility] Medical [place] Diastolic blood 53 mm[Hg] 53 mm[Hg] [facility] pressure Medical Center Systolic blood 115 mm[Hg] 115 mm[Hg] [facility] Body mass index 19.19 kg/m2 19.19 kg/m2 [facility] Nini osephs (BMI) [Ratio] Medical [address] Body temperature 37.081459 37.554178 [facility] Respiratory rate 18 /min 18 /min [facility] Heart rate 129 /min 129 /min [facility] Diastolic blood 59 mm[Hg] 59 mm[Hg] [facility] pressure Medical Center Systolic blood 116 mm[Hg] 116 mm[Hg] [facility] Oxygen saturation 98 % 98 % [facility] howellephs in Arterial blood Medical Center by Pulse oximetry Body temperature 36.589637 36.146793 [facility] Respiratory rate 17 /min 17 /min [facility] Heart rate 84 /min 84 /min [facility] Diastolic blood 78 mm[Hg] 78 mm[Hg] [facility] pressure Medical Center Systolic blood 132 mm[Hg] 132 mm[Hg] [facility] Body weight 58.724579 kg 58.329956 kg [facility] Center Oxygen saturation 97 % 97 % [facility] howellephs in Arterial blood Medical Center by Pulse oximetry Body height 165.160680 165.502565 cm [facility] [facility] Body mass index 21.2 kg/m2 21.2 kg/m2 [facility] (BMI) [Ratio] [facility]
--- NOTE | 2020-02-22 08:16 | PDOC ---
*Physical Exam - Vital Signs Last Vital Signs Temp Pulse Resp BP Pulse Ox 98.9 F 84 16 125/59 L 99 02/22/20 07:50 02/22/20 07:50 02/22/20 07:50 02/22/20 07:50 02/22/20 07:50 - Physical Exam 02/22/20 08:15 The patient was examined by [annie] under my direct supervision. I personally evaluated the patient. I concur with the above findings and the plan of care. ED Treatment Course - LABORATORY CBC & Chemistry Diagram: 02/22/20 08:40 02/22/20 08:40 Discharge - Discharge Information Problems reviewed: Yes Clinical Impression/Diagnosis: Cyclical vomiting Condition: Stable Disposition: HOME - Additional Discharge Information Prescriptions: Metoclopramide HCl [Reglan -] 10 mg PO TID #21 tablet - Follow up/Referral Referrals: Diana Wan MD [Primary Care Provider] - - Patient Discharge Instructions Patient Printed Discharge Instructions: DI for Cyclic Vomiting Syndrome-Child Additional Instructions: You were seen for your vomiting today Please take the Reglan every 8 hours as needed for nausea and vomiting. Please only drink fluids today give your stomach for 24. Once you stop vomiting you may eat a bland diet including plain rice, toast, applesauce and bananas. Avoid smoking marijuana as this can cause cyclical vomiting. Please follow-up with your primary care doctor tomorrow for further management of your symptoms. You were also given a referral for a psychiatrist for your anxiety. Please call them for an appointment later this week. Return to the ER for worsening vomiting, abdominal pain fever any change in your symptoms - Post Discharge Activity Work/Back to School Note: Back to Work
[2020-02-22] MEDS ORDERED: METOCLOPRAMIDE HCL INJECTION 10 MG/2 ML VIAL IVPB ONE ×2 (08:28→12:34)
[2020-02-22] MEDS ORDERED: SODIUM CHLORIDE 1,000 ML IV STA (08:28)
--- NOTE | 2020-02-22 08:33 | PDOC ---
History of Present Illness - General Chief Complaint: Nausea/Vomiting Stated Complaint: NAUSEA AND VOMITING Time Seen by Provider: 02/22/20 07:59 History Source: Patient Exam Limitations: No Limitations Past History - Travel History Traveled outside of the country in the last 30 days: No Close contact w/someone who was outside of country & ill: No - Medical History Allergies/Adverse Reactions: Allergies Allergy/AdvReac Type Severity Reaction Status Date / Time No Known Allergies Allergy Verified 02/23/20 06:42 Home Medications: Ambulatory Orders Metoclopramide HCl [Reglan -] 10 mg PO TID #21 tablet 02/22/20 Capsaicin 0.025% [Capsaicin [Nf] -] 60 gm TP TID #1 tube 02/23/20 COPD: No GI Disorders: Yes (chr gastritis) - Immunization History Immunization Up to Date: Yes - Psycho-Social/Smoking History Smoking History: Never smoked Have you smoked in the past 12 months: No Number of Cigarettes Smoked Daily: 0 Information on smoking cessation initiated: No - Substance Abuse Hx (Audit-C & DAST Scrn) How often the patient has a drink containing alcohol: Never Score: In Men: 4 or > Positive; In Women: 3 or > Positive: 0 Screen Result (Pos requires Nsg. Audit-10AR): Negative In the last yr the pt used illegal drug/Rx for NonMed reason: No Score: Yes response is considered Positive: 0 Screen Result (Positive result requires Nsg. DAST-10): Negative Review of Systems - Review of Systems Able to Perform ROS?: Yes Comments:: 02/22/20 10:33 CONSTITUTIONAL: Absent: fever, chills, diaphoresis, generalized weakness, malaise, loss of appetite HEENT: Absent: rhinorrhea, nasal congestion, throat pain, throat swelling, difficulty swallowing, mouth swelling, ear pain, eye pain, visual Changes CARDIOVASCULAR: Absent: chest pain, loss of consciousness, palpitations, irregular heart rate, peripheral edema RESPIRATORY: Absent: cough, shortness of breath, dyspnea with exertion, orthopnea, wheezing, stridor, hemoptysis GASTROINTESTINAL: Present: nausea, vomiting, abdominal pain Absent: abdominal distension, diarrhea, constipation, melena, hematochezia GENITOURINARY: Absent: dysuria, frequency, urgency, hesitancy, hematuria, flank pain, genital pain MUSCULOSKELETAL: Absent: myalgia, arthralgia, joint swelling SKIN: Absent: rash, itching, pallor HEMATOLOGIC/IMMUNOLOGIC: Absent: easy bleeding, easy bruising, lymphadenopathy, frequent infections ENDOCRINE: Absent: unexplained weight gain, unexplained weight loss, heat intolerance, cold intolerance NEUROLOGIC: Absent: headache, focal weakness or paresthesias, dizziness, unsteady gait, seizure, mental status changes, bladder or bowel incontinence PSYCHIATRIC: Absent: anxiety, depression, suicidal or homicidal ideation, hallucinations. Is the patient limited Chinese proficient: No *Physical Exam - Vital Signs Last Vital Signs Temp Pulse Resp BP Pulse Ox 98.9 F 84 16 125/59 L 99 02/22/20 07:50 02/22/20 07:50 02/22/20 07:50 02/22/20 07:50 02/22/20 07:50 - Physical Exam 02/22/20 10:33 GENERAL: Well developed, well nourished. Awake and alert. Actively vomiting. HEENT: Normocephalic, atraumatic. PERRLA, EOMI. No conjunctival pallor. Sclera are non- icteric. Moist mucous membranes. Oropharynx is clear. NECK: Supple. Full ROM. No lymphadenopathy. CARDIOVASCULAR: Regular rate and rhythm. No murmurs, rubs, or gallops. Distal pulses are 2+ and symmetric. PULMONARY: No evidence of respiratory distress. Lungs clear to auscultation bilaterally. No wheezing, rales or rhonchi. ABDOMINAL: Soft. Non-tender. Non-distended. No rebound or guarding. No organomegaly. Normoactive bowel sounds. MUSCULOSKELETAL Normal range of motion at all joints. No bony deformities or tenderness. No CVA tenderness. EXTREMITIES: No cyanosis. No clubbing. No edema. No calf tenderness. SKIN: Warm and dry. Normal capillary refill. No rashes. No jaundice. NEUROLOGICAL: Alert, awake, appropriate. Cranial nerves 2-12 intact. Normal speech. Toes are down-going bilaterally. Gait is normal without ataxia. PSYCHIATRIC: Cooperative. Good eye contact. Appropriate mood and affect. ED Treatment Course - LABORATORY CBC & Chemistry Diagram: 02/22/20 08:40 02/22/20 08:40 Medical Decision Making - Medical Decision Making 02/22/20 10:35 The patient is a 24-year-old male with no past medical history, presents to the ER today for nausea and vomiting. He states that he was seen two days ago for his symptoms. He notes that 2 days ago he was smoking marijuana. He states that he frequently smokes marijuana including multiple joints a day. He states that he got relief yesterday after medications and did stop vomiting. He notes that when he woke up this morning he began vomiting again. Denies smoking yesterday or this morning. Denies fevers, chills, lower abdominal pain, difficulty breathing and shortness of breath, and chest pain. A/P: Cyclical vomiting On exam abdomen soft nontender without rebound guarding or tenderness. Patient is actively vomiting. We will obtain basic labs, give fluids, EKG, Reglan given that it worked yesterday. CT scan from yesterday's visit reviewed. Portal-edema without acute pathology Reevaluate 02/22/20 15:38 EKG: rate 89 BPM NSR. QTc 452. Normal axis. No acute ST-T wave changes Additional 2 L of fluid including D5 half normal saline given. Second dose of Reglan and 2 of Ativan given with relief of vomiting. Lab work shows WC count of 19, down trending from visit 2 days ago. Patient reports feeling better at this time. Will DC home with by mouth Reglan and primary care follow-up. I discussed the physical exam findings, ancillary test results and final diagnoses with the patient. I answered all of the patient's questions. The patient was satisfied with the care received and felt comfortable with the discharge plan and treatment plan. The Patient agrees to follow up with the primary care physician/specialist within 24-72 hours. Return precautions were given. Discharge - Discharge Information Problems reviewed: Yes Clinical Impression/Diagnosis: Cyclical vomiting Condition: Stable Disposition: HOME - Admission No - Additional Discharge Information Prescriptions: Metoclopramide HCl [Reglan -] 10 mg PO TID #21 tablet - Follow up/Referral Referrals: Diana Wan MD [Primary Care Provider] - - Patient Discharge Instructions Patient Printed Discharge Instructions: DI for Cyclic Vomiting Syndrome-Child Additional Instructions: You were seen for your vomiting today Please take the Reglan every 8 hours as needed for nausea and vomiting. Please only drink fluids today give your stomach for 24. Once you stop vomiting you may eat a bland diet including plain rice, toast, applesauce and bananas. Avoid smoking marijuana as this can cause cyclical vomiting. Please follow-up with your primary care doctor tomorrow for further management of your symptoms. You were also given a referral for a psychiatrist for your anxiety. Please call them for an appointment later this week. Return to the ER for worsening vomiting, abdominal pain fever any change in your symptoms - Post Discharge Activity Work/Back to School Note: Back to Work
[2020-02-22] MEDS ORDERED: METOCLOPRAMIDE HCL INJECTION 10 MG/2 ML VIAL ONE ×2 (08:48→12:43)
[2020-02-22 09:00] LABS: BASO % 0.5 % (0-2.0); HEMATOCRIT 42.8 % (35.4-49); HEMOGLOBIN 14.2 GM/dL (11.7-16.9); LYMPH % 3.7 % (8-40); MCH 28.8 pg (25.7-33.7); MCHC 33.3 g/dl (32.0-35.9); MEAN CELL VOLUME 86.4 fl (80-96); MEAN PLT VOLUME 7.9 fl (7.5-11.1); MONO % 2.1 % (3.8-10.2); NEUT % 93.7 % (42.8-82.8); PLATELET COUNT 285 K/MM3 (134-434); RBC 4.95 M/mm3 (4.00-5.60); RDW 13.6 % (11.9-15.9); WHITE BLOOD COUNT 19.2 K/mm3 (4.0-10.0)
[2020-02-22 09:04] LABS: INR 1.16 (0.83-1.09)
[2020-02-22 09:42] LABS: POTASSIUM 3.8 mmol/L (3.5-5.1)
[2020-02-22 09:47] LABS: ALBUMIN 4.4 g/dl (3.4-5.0); BLOOD UREA NITROGEN 9.3 mg/dL (7-18); CALCIUM 10.2 mg/dL (8.5-10.1)
[2020-02-22 09:48] LABS: CREATININE 0.8 mg/dL (0.55-1.3)
[2020-02-22 09:50] LABS: TOT PROT 7.8 g/dl (6.4-8.2)
[2020-02-22] MEDS ORDERED: FAMOTIDINE 20 MG/50 ML IVPB 20 MG/50 ML MG IVPB ONE ×2 (10:15→10:22)
[2020-02-22] MEDS ORDERED: ACETAMINOPHEN 1000 MG/100 ML VIAL (NON FORMULARY) IVPB ONE (10:15)
[2020-02-22] MEDS ORDERED: ACETAMINOPHEN INJECTION 100 ML IVPB ONE (10:21)
[2020-02-22] MEDS ORDERED: DEXTROSE 5%-NORMAL SALINE 1,000 ML IV ONE (10:25)
[2020-02-22 11:57] LABS: ANISOCYTOSIS 1+; MACROCYTOSIS 0; PLATELET ESTIMATE NORMAL
[2020-02-22] MEDS ORDERED: LORazepam 2 MG/ML SDV VIAL ONE (12:44)
[2020-02-22 13:36] VITALS: BP 127/69; PULSE 72; TEMP 98.6
--- NOTE | 2020-02-22 15:13 | EKG ---
Test Reason : Blood Pressure : / mmHG Vent. Rate : 089 BPM Atrial Rate : 089 BPM P-R Int : 204 ms QRS Dur : 082 ms QT Int : 372 ms P-R-T Axes : 073 072 054 degrees QTc Int : 452 ms NORMAL SINUS RHYTHM WITH SINUS ARRHYTHMIA NORMAL ECG WHEN COMPARED WITH ECG OF 20-FEB-2020 14:28, AR INTERVAL HAS DECREASED Confirmed by MD TALI, ASHLEY ([id number]) on 02/22/2020 3:13:20 PM Referred By: Confirmed By:ASHLEY CESAR MD
== END 2020-02-22 15:12 | disposition home or self-care (01) ==
LOC: JER 07:49
PROC: 3E033NZ Introduction of Analgesics, Hypnotics, Sedatives into Peripheral Vein, Percutaneous Approach (ICD-10-PCS; principal; 2020-02-22)
PROC: 3E033GC Introduction of Other Therapeutic Substance into Peripheral Vein, Percutaneous Approach (ICD-10-PCS; 2020-02-22)
PROC: 3E0337Z Introduction of Electrolytic and Water Balance Substance into Peripheral Vein, Percutaneous Approach (ICD-10-PCS; 2020-02-22)
DX: R11.15 Cyclical vomiting syndrome unrelated to migraine (principal)
CPT/HCPCS: 36415; 80053; 83690; 85025; 85610; 93005; 93010; 96361; 96365; 96375; 96376; 99285-25; J0131

== ENCOUNTER 2020-09-01 08:40 | Emergency (ER) | payer OTHER ==
[2020-09-01] MEDS ORDERED: HALOPERIDOL LACTATE 5 MG/ML IM ONE ×2 (09:10→10:15)
[2020-09-01] MEDS ORDERED: SODIUM CHLORIDE 0.9% 500 ML INFUS.BAG IV ONE ×2 (09:13→10:36)
[2020-09-01] MEDS ORDERED: FAMOTIDINE 20 MG/50 ML IVPB 20 MG/50 ML MG IVPB ONE ×2 (09:13→09:24)
[2020-09-01] MEDS ORDERED: METOCLOPRAMIDE HCL INJECTION 10 MG/2 ML VIAL IVPUSH ONE (09:13)
[2020-09-01] MEDS ORDERED: METOCLOPRAMIDE HCL INJECTION 10 MG/2 ML VIAL ONE (09:24)
[2020-09-01 09:35] LABS: BASO % 0.4 % (0-2.0); EOS % 0.5 % (0-4.5); HEMATOCRIT 43.8 % (35.4-49); HEMOGLOBIN 14.9 GM/dL (11.7-16.9); LYMPH % 7.7 % (8-40); MCH 29.7 pg (25.7-33.7); MCHC 34.1 g/dl (32.0-35.9); MEAN CELL VOLUME 87.1 fl (80-96); MEAN PLT VOLUME 8.3 fl (7.5-11.1); MONO % 4.1 % (3.8-10.2); NEUT % 87.3 % (42.8-82.8); PLATELET COUNT 257 K/MM3 (134-434); RBC 5.03 M/mm3 (4.00-5.60); RDW 13.9 % (11.9-15.9); WHITE BLOOD COUNT 18.2 K/mm3 (4.0-10.0)
[2020-09-01 09:58] LABS: BLOOD UREA NITROGEN 15.1 mg/dL (7-18); CALCIUM 9.3 mg/dL (8.5-10.1)
[2020-09-01 10:01] LABS: CREATININE 0.9 mg/dL (0.55-1.3)
[2020-09-01] MEDS ORDERED: HALOPERIDOL LACTATE 5 MG/ML ONE (10:17)
[2020-09-01 11:35] VITALS: BP 121/65; PULSE 76; TEMP 97.8
== END 2020-09-01 11:35 | disposition home or self-care (01) ==
LOC: JER 08:40
PROC: 3E033GC Introduction of Other Therapeutic Substance into Peripheral Vein, Percutaneous Approach (ICD-10-PCS; principal; 2020-09-01)
PROC: 3E023NZ Introduction of Analgesics, Hypnotics, Sedatives into Muscle, Percutaneous Approach (ICD-10-PCS; 2020-09-01)
PROC: 3E033GC Introduction of Other Therapeutic Substance into Peripheral Vein, Percutaneous Approach (ICD-10-PCS; 2020-09-01)
DX: F12.188 Cannabis abuse with other cannabis-induced disorder (principal)
CPT/HCPCS: 36415; 80048; 83690; 85025; 93005; 93010; 99284-25

== ENCOUNTER 2020-09-03 08:08 | Emergency (ER) | payer OTHER ==
[2020-09-03] MEDS ORDERED: SODIUM CHLORIDE 0.9% 500 ML INFUS.BAG IV ONE (08:15)
[2020-09-03] MEDS ORDERED: HALOPERIDOL LACTATE 5 MG/ML IM ONE (08:16)
[2020-09-03] MEDS ORDERED: FAMOTIDINE 20 MG/50 ML IVPB 20 MG/50 ML MG IVPB ONE ×2 (08:16→08:58)
[2020-09-03 08:20] VITALS: BP 129/78; PULSE 80; TEMP 97; BMI 21.6
[2020-09-03] MEDS ORDERED: diazePAM CARPU-JECT 10 MG/2 ML DISP.SYRIN ONE (08:57)
[2020-09-03] MEDS ORDERED: HALOPERIDOL LACTATE 5 MG/ML ONE (09:00)
[2020-09-03 09:32] LABS: BASO % 0.5 % (0-2.0); EOS % 0.3 % (0-4.5); HEMATOCRIT 43.2 % (35.4-49); HEMOGLOBIN 14.9 GM/dL (11.7-16.9); LYMPH % 8.9 % (8-40); MCH 29.5 pg (25.7-33.7); MCHC 34.5 g/dl (32.0-35.9); MEAN CELL VOLUME 85.6 fl (80-96); MEAN PLT VOLUME 8.4 fl (7.5-11.1); MONO % 6.1 % (3.8-10.2); NEUT % 84.2 % (42.8-82.8); PLATELET COUNT 271 K/MM3 (134-434); RBC 5.05 M/mm3 (4.00-5.60); RDW 13.7 % (11.9-15.9); WHITE BLOOD COUNT 16.7 K/mm3 (4.0-10.0)
[2020-09-03 10:07] LABS: MAGNESIUM 2.2 mg/dL (1.8-2.4)
[2020-09-03 10:09] LABS: ALBUMIN 4.7 g/dl (3.4-5.0); CALCIUM 9.2 mg/dL (8.5-10.1)
[2020-09-03 10:12] LABS: BILIRUBIN,TOTAL 1.3 mg/dL (0.2-1); CREATININE 0.9 mg/dL (0.55-1.3); TOT PROT 7.4 g/dl (6.4-8.2)
[2020-09-03 10:13] LABS: PHOSPHOROUS 1.7 mg/dL (2.5-4.9)
[2020-09-03] MEDS ORDERED: NAPH,MB-DB/K PH,MBDB POWDER PACKET PO ONE (10:23)
[2020-09-03] MEDS ORDERED: NAPH,MB-DB/K PH,MBDB POWDER PACKET ONE (11:07)
== END 2020-09-03 11:14 | disposition home or self-care (01) ==
LOC: JER 08:08
PROC: 3E033GC Introduction of Other Therapeutic Substance into Peripheral Vein, Percutaneous Approach (ICD-10-PCS; principal; 2020-09-03)
PROC: 3E023NZ Introduction of Analgesics, Hypnotics, Sedatives into Muscle, Percutaneous Approach (ICD-10-PCS; 2020-09-03)
DX: F12.188 Cannabis abuse with other cannabis-induced disorder (principal); E83.39 Other disorders of phosphorus metabolism
CPT/HCPCS: 36415; 80053; 83690; 83735; 84100; 85025; 99284-25; C9803; U0003; U0005

== ENCOUNTER 2021-01-05 16:03 | Emergency (ER) | payer OTHER ==
[2021-01-05 16:40] VITALS: BP 100/54; PULSE 70; TEMP 99.1
[2021-01-05] MEDS ORDERED: FAMOTIDINE 20 MG TABLET ONE (18:14)
[2021-01-05] MEDS ORDERED: NAPROXEN 500 MG TABLET PO ONE (18:15)
[2021-01-05] MEDS ORDERED: NAPROXEN 500 MG TABLET ONE (18:15)
[2021-01-05 19:00] LABS: CHLORIDE 104 mmol/L (98-107); SODIUM 137 mmol/L (136-145)
[2021-01-05 19:03] LABS: ALBUMIN 4.2 g/dl (3.4-5.0); CALCIUM 9.2 mg/dL (8.5-10.1)
[2021-01-05 19:04] LABS: ANION GAP 6 MMOL/L (8-16); BLOOD UREA NITROGEN 14.4 mg/dL (7-18); CO2 27 mmol/L (21-32); GLUCOSE,RANDOM 86 mg/dL (74-106)
[2021-01-05 19:07] LABS: SGOT/AST 15 U/L (15-37); SGPT/ALT 23 U/L (13-61)
[2021-01-05 19:08] LABS: BILIRUBIN,TOTAL 0.7 mg/dL (0.2-1); TOT PROT 7.6 g/dl (6.4-8.2)
[2021-01-05 19:09] LABS: ALK PHOS 79 U/L (45-117)
== END 2021-01-05 19:42 | disposition home or self-care (01) ==
LOC: JER 16:03
DX: M94.0 Chondrocostal junction syndrome [Tietze] (principal)
CPT/HCPCS: 36415; 71046-TC-FY; 80053; 82550; 84484; 93005; 93010; 99284-25

== ENCOUNTER 2021-01-08 07:44 | Emergency (ER) | payer OTHER ==
[2021-01-08 08:00] VITALS: BP 109/69; PULSE 67; TEMP 97.2
[2021-01-08] MEDS ORDERED: ACETAMINOPHEN 500 MG TABLET (FP) PO ONE (09:28)
[2021-01-08] MEDS ORDERED: FAMOTIDINE 20 MG TABLET PO ONE (09:28)
[2021-01-08] MEDS ORDERED: ACETAMINOPHEN 500 MG TABLET (FP) ONE (09:29)
[2021-01-08] MEDS ORDERED: FAMOTIDINE 20 MG TABLET ONE (09:29)
== END 2021-01-08 09:32 | disposition home or self-care (01) ==
LOC: JER 07:44
DX: M94.0 Chondrocostal junction syndrome [Tietze] (principal)
CPT/HCPCS: 93005; 93010; 99284-25

== ENCOUNTER 2023-11-16 09:03 | Emergency (ER) | payer OTHER ==
[2023-11-16 09:12] VITALS: BP 136/66; PULSE 93; RESP 20; TEMP 98.6
[2023-11-16 10:04] LABS: BASO % 0.5 % (0-2.0); HEMATOCRIT 40.9 % (35.4-49); HEMOGLOBIN 14.4 GM/dL (11.7-16.9); LYMPH % 9.3 % (8-40); MCH 29.5 pg (25.7-33.7); MCHC 35.1 g/dl (32.0-35.9); MEAN CELL VOLUME 83.9 fl (80-96); MEAN PLT VOLUME 7.4 fl (7.5-11.1); MONO % 7.7 % (3.8-10.2); NEUT % 82.5 % (42.8-82.8); PLATELET COUNT 260 10^3/uL (134-434); RBC 4.88 M/mm3 (4.00-5.60); RDW 13.6 % (11.9-15.9); WHITE BLOOD COUNT 9.6 K/mm3 (4.0-10.0)
[2023-11-16] MEDS ORDERED: FAMOTIDINE 20 MG/50 ML IVPB 20 MG/50 ML MG IVPB ONE (10:09)
[2023-11-16] MEDS ORDERED: ONDANSETRON 4 MG/2 ML VIAL ONE (10:09)
[2023-11-16] MEDS ORDERED: KETOROLAC TROMETHAMINE 15 MG/ML VIAL ONE (10:09)
[2023-11-16] MEDS ORDERED: ACETAMINOPHEN INJECTION 100 ML IVPB ONE (10:09)
[2023-11-16 10:23] LABS: POTASSIUM 4.6 mmol/L (3.5-5.1)
[2023-11-16 10:27] LABS: ALBUMIN 4.1 g/dl (3.4-5.0); BLOOD UREA NITROGEN 5.8 mg/dL (7-18); CALCIUM 9.1 mg/dL (8.5-10.1)
[2023-11-16] MEDS: ONDANSETRON 4 MG/2 ML VIAL IVPB ONE (10:29)
[2023-11-16 10:30] LABS: CREATININE 0.8 mg/dL (0.55-1.3)
[2023-11-16] MEDS: ACETAMINOPHEN 1000 MG/100 ML BAG IVPB ONE (10:30)
[2023-11-16] MEDS: SODIUM CHLORIDE 0.9% 500 ML INFUS.BAG IV ONE (10:30)
[2023-11-16] MEDS: KETOROLAC TROMETHAMINE 15 MG/ML VIAL IVPUSH ONE (10:30)
[2023-11-16] MEDS: FAMOTIDINE 20 MG/50 ML IVPB 20 MG/50 ML MG IVPB ONE (10:30)
[2023-11-16 10:31] LABS: TOT PROT 7.6 g/dl (6.4-8.2)
[2023-11-16 10:32] LABS: BILIRUBIN,TOTAL 0.8 mg/dL (0.2-1)
[2023-11-16] MEDS ORDERED: MAG HYDROX/AL HYDROX/SIMETH 30 ML UNIT-DOSE CUP PO ONE (10:50)
[2023-11-16 11:08] LABS: N-TERMINAL BNP 79.1 pg/ml (5-125)
[2023-11-16] MEDS ORDERED: LACTATED RINGERS SOLUTION 1000 ML INFUS.BAG IV ONE (12:10)
== END 2023-11-16 13:43 | disposition home or self-care (01) ==
LOC: JER 09:03
PROC: 3E033GC Introduction of Other Therapeutic Substance into Peripheral Vein, Percutaneous Approach (ICD-10-PCS; principal; 2023-11-16)
PROC: 3E033NZ Introduction of Analgesics, Hypnotics, Sedatives into Peripheral Vein, Percutaneous Approach (ICD-10-PCS; 2023-11-16)
PROC: 3E0333Z Introduction of Anti-inflammatory into Peripheral Vein, Percutaneous Approach (ICD-10-PCS; 2023-11-16)
PROC: 3E033GC Introduction of Other Therapeutic Substance into Peripheral Vein, Percutaneous Approach (ICD-10-PCS; 2023-11-16)
DX: R11.2 Nausea with vomiting, unspecified (principal); R10.32 Left lower quadrant pain; R10.13 Epigastric pain; R19.7 Diarrhea, unspecified; R50.9 Fever, unspecified; R51.9 Headache, unspecified; R06.02 Shortness of breath; R07.2 Precordial pain; Z20.822 Contact with and (suspected) exposure to COVID-19
CPT/HCPCS: 0241U-QW; 36415; 71045-TC-FY; 80053; 82550; 82553; 83690; 83880; 84484; 85025; 93005; 93010; 99285-25; J0131